=== PATIENT | male | born 1960 | race Caucasian/White ===

== ENCOUNTER 2024-09-13 09:10 | Outpatient (AMB) | payer BC, SELFPAY ==
--- NOTE | 2024-09-13 09:18 | HO.SPINEOV ---
Vital Signs 09/13/24 09:19 Height 6 ft 2 in Weight 240 lb BMI 30.8 Intake Visit Reasons: radiculopathy- Trouble walking Intake Note: Mr. Chaudhry is here today c/o Numbness and Tingling on the leg and foot. 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 The 1st problem, and the 1 that is been the most noticeable to be him has been a numbness and weakness of his left distal lower extremity that started in April. It started rather abruptly, without any specific provocative event. He describes himself as having tingling and numbness in the back part of his calf as well as in the top of his foot. At the same time this started, he developed a footdrop. The numbness and tingling in the foot will get worse with activity, but can also be felt at rest. The footdrop is more less stayed the same since it started without any progression. There is no pain shooting down the leg. No cauda equina symptoms. The 2nd symptom is a left arm numbness which is intermittent but is present fairly frequently. It is brought him to the emergency room twice where he has had a stroke evaluation and both times he tells me an MRI was done and a stroke was ruled out. He is frustrated because he is not sure what to do at this point. He does report some balance issues. He has not fallen, but he has to make a dedicated concentration on his left leg when he is walking to make sure he does not trip on something. Denies any recent fevers, infections, vaccinations, tick bites, etc.. PMH: History of coronary disease with a stent 3 years ago, hypertension, high cholesterol but outside of that reports no major medical issues and has never had surgery. Social hx: He does not smoke, drink or use any recreational drugs Medications: Lisinopril, carvedilol, atorvastatin Allergies: None Physical exam: He is awake alert oriented no acute distress, motor examination reveals subtle weakness of the distal left upper extremities, specifically in the hand grasp in the finger intrinsics. He also has weakness of his distal left lower extremity in the motor groups of the tibialis anterior and the extensor hallucis longus. The rest of the motor groups of both arms and legs are normal. He has hyperreflexia in the left upper extremity and left lower extremity. He has a Torin's sign on the left. Possibly an upgoing toe on the left as well, it was difficult for him to cooperate with Babinski testing. He has loss of sensation along the top of his foot going across in an L5/peroneal distribution. Imaging review: He is a lumbar MRI done at [facility] which is essentially showing just some very modest degenerative disc disease with no evidence of nerve compression Impression: 63-year-old male suffered to the office today for evaluation of numbness and tingling in his left arm intermittently, and persistent tingling and numbness of his left distal lower extremity with footdrop. His symptoms have remained relatively stable over the course of the last few months with the exception of the tingling in the foot which seems to get worse with activity. The symptoms can be present also at rest and are generally there throughout the day. Lumbar pathology was excluded. Based on his exam, I am concerned he may have a myelopathy with a Butler's sign and hyperreflexia on the left. I am going to order cervical MRI to exclude this. He tells me that brain MRIs have been negative it is time he has gone to the emergency room to have a stroke workup so I will not repeat this. Additionally, I will order a left lower extremity EMG to exclude a polyneuropathy or peroneal neuropathy. We can call him with the results of the cervical MRI and the EMG. Thank you for allowing us to care for your patient. The total time spent with this visit with this patient was 45 minutes reviewing history, physical exam, lumbar imaging review, and implementation of treatment plan or further diagnostic testing Westley Blackmon MD,PhD [facility] Orders: Orders MR cervical spine wo con Today R20.0 - Anesthesia of skin, R20.2 - Paresthesia of skin NE electromyogram (EMG) Today R20.0 - Anesthesia of skin Coding Level of Care Code New Pt Level 4 (99367) Diagnoses Numbness and tingling in left arm R20.0; R20.2 Numbness of left foot R20.0
[2024-09-13 09:19] VITALS: BMI 30.8
== END 2024-09-13 09:47 | disposition home or self-care (01) ==
PROVIDERS: Visit Provider Physician Assistant
DX: R20.0 Anesthesia of skin (principal); R20.2 Paresthesia of skin
CPT/HCPCS: 99204

== ENCOUNTER → 2024-09-13 09:10 | Outpatient (BNVA) | payer BC, SELFPAY | PROVIDERS: Visit Provider Physician Assistant ==

== ENCOUNTER 2024-10-06 08:42 | Outpatient (REF) | payer BC, SELFPAY ==
--- NOTE | 2024-10-06 09:00 | EMG_ITS ---
Chief complaint: Around 6 months of left foot numbness. Left footdrop. Denies any back pain or leg pain. Reason for referral: Evaluate for radiculopathy versus peroneal neuropathy Referred by: Westley IBRAHIM Procedure done: Left lower extremity NCS/EMG, with comparison to right Precautions and/or limitations: None The limb temperature was monitored continuously and remained between 32-36 degrees C during the performance of the NCS. Nerve Conduction Studies Anti Sensory Summary Table ?Stim Site NR Onset (ms) Norm Onset (ms) Peak (ms) Norm Peak (ms) O-P Amp (?V) Norm O-P Amp Site1 Site2 Delta-0 (ms) Dist (cm) Lazaro (m/s) Norm Lazaro (m/s) Left Sural Anti Sensory (Lat Mall) Calf ? 3.4 4.0 <4.0 9.3 >5.0 Calf Lat Mall 3.4 14.0 41 Right Sural Anti Sensory (Lat Mall) Calf ? 3.1 3.8 <4.0 12.4 >5.0 Calf Lat Mall 3.1 14.0 45 Motor Summary Table ?Stim Site NR Onset (ms) Norm Onset (ms) O-P Amp (mV) Norm O-P Amp iAmp (mV) Amp (1st) (%) Site1 Site2 Delta-0 (ms) Dist (cm) Lazaro (m/s) Norm Lazaro (m/s) Left Peroneal Motor (Ext Dig Brev) Ankle NR <4.0 >2.5 Ankle Ext Dig Brev 0.0 B Fib NR B Fib Ankle 0.0 >40 Poplt NR Poplt B Fib 0.0 >40 Right Peroneal Motor (Ext Dig Brev) Ankle ? 3.8 <4.0 10.3 >2.5 12.4 100.0 Ankle Ext Dig Brev 3.8 0.0 B Fib ? 13.2 7.8 8.9 75.7 B Fib Ankle 9.4 38.0 40 >40 Poplt ? 14.3 7.6 8.8 73.8 Poplt B Fib 1.1 7.0 64 >40 Left Tibial Motor (Abd Meneses Brev) Ankle ? 4.6 <5 0.6 >2.5 0.6 100.0 Ankle Abd Meneses Brev 4.6 0.0 Knee ? 19.1 0.4 0.4 66.7 Knee Ankle 14.5 47.0 32 >40 EMG ?Side Muscle Nerve Root Ins Act Fibs Psw Amp Dur Poly Recrt Int Pat Comment Right AntTibialis Dp Br Peron L4-5 Nml Nml Nml Nml Nml 0 Nml Complete Right MedGastroc Tibial S1-2 Nml Nml Nml Nml Nml 0 Nml Complete Left AbdHallucis MedPlantar S1-2 Incr 1+ 1+ Nml Nml 0 Nml Complete Left AntTibialis Dp Br Peron L4-5 Incr 1+ 1+ Nml Nml 0 Nml Complete Left PostTibialis Tibial L5, S1 Incr 1+ 1+ Nml Nml 0 Reduced Complete Left MedGastroc Tibial S1-2 Incr 1+ 1+ Nml Nml 0 Reduced Complete Left VastusMed Femoral L2-4 Nml Nml Nml Nml Nml 0 Nml Complete Paraspinal EMG ?Side Muscle Nerve Root Ins Act Fibs Psw Comment Right Lumbar Upper Rami Nml Nml Nml Right Lumbar Mid Rami Nml Nml Nml Right Lumbar Lower Rami Nml Nml Nml Left Lumbar Upper Rami Nml Nml Nml Left Lumbar Mid Rami Nml Nml Nml Left Lumbar Lower Rami Incr 1+ 1+ FINDINGS: Left peroneal nerve showed absent response. Left tibial nerve showed very small/almost absent response. Bilateral sural and right peroneal were within normal. Although left sural showed slightly smaller and slower peak latency compared to the right. Concentric needle EMG was performed in selected muscles of the bilateral lower extremities and lumbar paraspinals. Study revealed signs of electric abnormalities as shown in the table above. L5-S1 innervated muscles such as left tibialis anterior, medial gastrocnemius, posterior tibialis, AH, showed increased insertional activity, PSWs and fibrillations. Left medial gastrocnemius and posterior tibialis showed reduced recruitment. Left lower lumbar paraspinals showed increased insertional activity, PSWs and fibrillations. IMPRESSION: 1. This is an abnormal study. 2. There is electrodiagnostic findings suggestive for left L5-S1 acute/subacute radiculopathy. 3. Left sural showed slightly smaller and slower peak latencies compared to the right, therefore possibility of sciatic neuropathy not completely ruled out. 4. No findings on right lower extremity to suggest peripheral neuropathy. CLINICAL COMMENT: Patient denies back pain and MRI lumbar spine report does not seem consistent with the above findings. (However I did not have the chance to review the MRI images myself.) Further clinical correlation recommended. Thank you for your kind referral. Irene Oliver MD, DAVION Board Certified, [place] [employer] and [employer] (ABPMR) Board Certified, [place] [employer] Electro[employer] (ABEM) CODIN [id number] MTDD
--- OUTSIDE RECORDS SUMMARY | 2024-10-06 23:08 | XMS_ITS | Continuity of Care Document ---
Author Organization [facility] ter Address [address] [place] [id number]- Care Team Providers Care Fall Intern Name Role Phone Verónica LAMBERT, Melanie Primary Care Physician Encounter [facility] Date(s): 09/05/24 - 09/06/[address] [address]- Discharge Disposition: A-D/C Home Attending Physician: Miranda Engle MD Admitting Physician: Rola Azul MD Referring Physician: Not on Staff, Referring MD Allergies, Adverse Reactions, Alerts No Known Allergies Immunizations Given and Recorded Vaccine Date Status Refusal Reason tetanus-diphtheria toxoids (Td) 03/29/24 Given influenza virus vaccine, inactivated 08/18/23 John rded SARS-CoV-2(COVID-19)mRNA-LNP vac([id number]) 08/18/23 Recorded SARS-CoV-2 mRNA ([id number]-[id number]) vax 02/07/22 Recorded SARS-CoV-2 (COVID-19) mRNA BNT-162b2 vac 09/17/21 Recorded SARS-CoV-2 (COVID-19) mRNA BNT-162b2 vac 03/08/21 Recorded SARS-CoV-2 (COVID-19) mRNA-1273 vaccine 02/08/21 R ecorded Medications amLODIPine 10 mg oral tablet 10 mg, Tablet, By Mouth, Hold for: sbp<110, 09/06/24 9:00:00 EST Start Date: 09/06/24 Stop Date: 09/06/24 Status: Completed amLODIPine 10 mg oral tablet 1 tablet, By Mouth, Daily in AM, # 90 tablet, 1 Refills, Maintenance, 03/29/24 14:01:00 EDT, [id number], 188, cm, 03/29/24 13:54:00 EDT, Height, 107, kg, 11/03/23 1:48:00 EST, Dry Weight Start Date: 03/29/24 Status: Ordered aspirin 81 mg oral delayed release tablet 81 mg, 1, tablet, By Mouth, Daily, Refills 0, Maintenance, 01/06/23 9:12:00 EDT, Partial fill upon patient request if the prescription is for a schedule II opioid drug. Start Date: 01/06/23 Status: Ordered atorvastatin 80 mg oral tablet 1 tablet, By Mouth, Daily, # 90 tablet, 1 Refills, Maintenance, 05/03/24 9:44:00 EDT, [id number], 188, cm, 03/29/24 13:54:00 EDT, Height, 107, kg, 11/03/23 1:48:00 EST, Dry Weight Start Date: 05/03/24 Status: Ordered carvedilol 25 mg oral tablet 25 mg, Tablet, By Mouth, Hold for: sbp<100, hr<60, 09/06/24 9:00:00 EST Start Date: 09/06/24 Stop Date: 09/06/24 Status: Completed carvedilol 25 mg oral tablet 25 mg, By Mouth, 2 times a day, Refills 0, Maintenance, 07/30/24 12:19:00 EDT, Partial fill upon patient request if the prescription is for a schedule II opioid drug. Start Date: 07/30/24 Status: Ordered ezetimibe 10 mg oral tablet TAKE 1 TABLET BY MOUTH EVERY DAY Start Date: 12/14/21 Status: Ordered isosorbide mononitrate 30 mg oral tablet, extended release 1 tablet = 30 mg, By Mouth, Daily in AM, 0 Refills, Maintenance, 07/30/24 3:23:00 EDT, Partial fillupon patient request if the prescription is for a schedule II opioid drug. Start Date: 07/30/24 Status: Ordered nitroglycerin 0.4 mg sublingual tablet 1 tablet = 0.4 mg, Sublingual, Every 5 minutes, PRN as needed for chest pain, not to exceed 3 doses/15 min--if pain persists, seek medical attention, # 25 tablet, 0 Refills, Maintenance, 02/14/21 15:42:00 EDT, Tablet, [id number], Partial fill... Start Date: 02/14/21 Status: Ordered Problem List Condition Confirmation Course Effective Dates Status H ealth Status Informant CAD (coronary artery disease) Confirmed Active Gout Confirmed Active Hypertensive disorder Confirmed Active Obese class I Confirmed Active Obesity Confirmed Active Prediabetes Confirmed Active Hyperlipidemia Confirmed Active Transient cerebral ischemia 1 Confirmed 10/21/23 Active 1Outside Source Comment: Last Assessment & Plan: TIA/disorientation -NIH stroke scale 0, CT of the head and neck revealed no acute intracranial findings however did find some vessel disease. 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 Plan: MRI of the brain ordered and pending Lipid panel, A1c, PT/INR, troponin, TSH, ESR, CRP pending If MRI positive may require TTE on admission, or can be performed as an outpatient Permissive hypertension with goal BP less than 220 mmHg, can resume homemedications for hypertension to ensure BP is less than 160 upon discharge Aspirin and Plavix administered in the ER, continue DAPT therapy for approximately 21 day s then Plavix monotherapy Continue high intensity statin 80 mg daily Smoking cessation. Outpatient follow up with neurology. Results Radiology Reports * Exam Date Time Procedure Performing Provider Status 09/06/24 6:34 AM Chest 2 Views Frontal and Lat Becky Lantigua; Auth (Verified) Notes: (Chest 2 Views Frontal and Lat) Reason For Exam: Stroke;Other: RESULT: Chest 2 Views Frontal and Lat Chest 2 Views Frontal and Lat Reason: Stroke; Clinical Question(s): CHF. COMPARISON: Multiple priors, most recent chest radiograph 07/30/2024. FINDINGS: LINES AND TUBES: None. LUNGS AND PLEURA: Clear lungs. Normal pulmonary vascularity. No pleural effusion. No pneumothorax. HEART, MEDIASTINUM AND JENNIFER: Heart is normal in size. Normal mediastinal and hilar contour. BONES AND SOFT TISSUES: No acute abnormality. Mild degenerative changes of the midthoracic spine. IMPRESSION: No acute abnormality. I have personally reviewed the images and I agree with this report. WSN: [id number] Ordering Physician: Bobby Yates Dictated By: Kecia Gotti DO Dictated Date/Time: 09/06/24 9:18 am Reviewed By: Jose Valles MD, V Signed By: Jose Valles MD, V Signed Date/Time: 09/06/24 9:23 am Transcribed By: MONTSERRAT Transcribed Date/Time: 09/06/24 9:07 am * Exam Date Time Procedure Performing Provider Status 09/05/24 8:[address] Angio Neck Hyperacute Stroke Rainer Garcia (Verified) Notes: (CT Angio Neck Hyperacute Stroke) Reason For Exam: Aneurysm, neck vessel(s);Other: RESULT: CT Angio Neck Hyperacute Stroke CT Angio Head Hyperacute Stroke, CT Angio Neck Hyperacute Stroke Hx of Present Illness: Pt reports new onset of numbness of L arm and R leg with palpatations, 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 Pt denies headaches, n v, weakness, loss of balance and coordination.; Reason: Other:; Stroke; Clinical Question(s): Other:; Hematoma Aneurysm / Other: TECHNIQUE: CT angiogram of the head and neck was performed after bolus administration of intravenous contrast. 100 mL of Isovue 300 was administered intravenously. Coronal and sagittal MIP reformatted images were obtained. Additional 3-D images were created on a separate workstation under concurrent supervision by the attending radiologist. All stenoses are measured using NASCET criteria. Weight-based protocol using automatic tube modulation was used to optimize exposure parameters. RADIATION DOSE PARAMETERS: CTDIvol Body: 28.47 mGy, DLP Body: 634 mGy*cm. CTDIvol Head: 46.30 mGy, DLP Head: 773 mGy*cm. COMPARISON: Noncontrast CT head performed concurrently. CTA of the head and neck 07/29/2024 FINDINGS: CTA OF THE NECK: Arch: There is a two vessel aortic arch, with common origin of the brachiocephalic artery and left common carotid artery. There is mild atherosclerotic plaque of the aortic arch, but origins of the supra aortic vessels are patent. Mild soft plaque and mild narrowing of the proximal left subclavian artery. Right carotid system: The common carotid and cervical internal carotid arteries are patent. There is calcified atherosclerotic plaque at the carotid bifurcation and proximal right ICA, but no ICA stenosis (0%) by NASCET criteria. Left carotid system: The common carotid and cervical internal carotid arteries are patent. There iscalcified atherosclerotic plaque at the carotid bifurcation, but no ICA stenosis (0%) by NASCET criteria. There is a left-dominant vertebral artery system. Right vertebral: Patent. Left vertebral: Patent. Scattered calcifications including the origin. Other: Soft tissues and bones: No evidence of lymphadenopathy or mass. The thyroid is unremarkable. Visualized lung apices are clear. Degenerative changes of the cervical spine. CTA OF THE HEAD: Anterior circulation: Bilateral intracranial ICAs demonstrate atherosclerotic calcification, without stenosis. Bilateral JB and MCA branches are patent. There is no significant stenosis, proximal cutoff, aneurysm, or vascular malformation. Posterior circulation: Severe focal stenosis of the proximal V4 segment of the right vertebral artery is more pronounced. The left humeral artery is patent. The basilar artery is patent. There is a type left posterior cerebral artery, which is patent. The right posterior cerebral artery is patent. Veins: Major dural venous sinuses are patent. Other: Soft tissues and bones: No midline shift or effacement of the basal cisterns. No space-occupying hemorrhage. No acute territorial loss of taylor-white matter differentiation. Orbits are unremarkable. No significant opacification in the paranasal sinuses or mastoid air cells. IMPRESSION: 1. No acute intracranial large vessel occlusion. 2. Severe focal stenosis of the nondominant proximal V4 segment of the right vertebral artery is more pronounced. 3. No hemodynamically-significant stenoses of the extracranial internal carotid and vertebral arteries. Mild soft plaque and mild narrowing of the proximal left subclavian artery. A preliminary report was issued to the emergency room by the [facility] service 09/05/2024 at 9:04 PM. WSN: [id number] Ordering Physician: Bobby Ytaes Dictated By: Jose L Estrada MD Dictated Date/Time: 09/06/24 8:43 am Reviewed By: Jose L Estrada MD Signed By: Jose L Estrada MD Signed Date/Time: 09/06/24 8:43 am Transcribed By: CSB Transcribed Date/Time: 09/06/24 8:33 am * Exam Date Time Procedure Performing Provider Status 09/05/24 8:[address] Angio Head Hyperacute Stroke Rainer Garcia; Navi (Verified) Notes: (CT Angio Head Hyperacute Stroke) Reason For Exam: Stroke;Other: RESULT: CT Angio Head Hyperacute Stroke CT Angio Head Hyperacute Stroke, CT Angio Neck Hyperacute Stroke Hx of Present Illness: Pt reports new onset of numbness of L arm and R leg with palpatations, 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 Pt denies headaches, n v, weakness, loss of balance and coordination.; Reason: Other:; Stroke; Clinical Question(s): Other:; Hematoma Aneurysm / Other: TECHNIQUE: CT angiogram of the head and neck was performed after bolus administration of intravenous contrast. 100 mL of Isovue 300 was administered intravenously. Coronal and sagittal MIP reformatted images were obtained. Additional 3-D images were created on a separate workstation under concurrent supervision by the attending radiologist. All stenoses are measured using NASCET criteria. Weight-based protocol using automatic tube modulation was used to optimize exposure parameters. RADIATION DOSE PARAMETERS: CTDIvol Body: 28.47 mGy, DLP Body: 634 mGy*cm. CTDIvol Head: 46.30 mGy, DLP Head: 773 mGy*cm. COMPARISON: Noncontrast CT head performed concurrently. CTA of the head and neck 07/29/2024 FINDINGS: CTA OF THE NECK: Arch: There is a two vessel aortic arch, with common origin of the brachiocephalic artery and left common carotid artery. There is mild atherosclerotic plaque of the aortic arch, but origins of the supra aortic vessels are patent. Mild soft plaque and mild narrowing of the proximal left subclavian artery. Right carotid system: The common carotid and cervical internal carotid arteries are patent. There is calcified atherosclerotic plaque at the carotid bifurcation and proximal right ICA, but no ICA stenosis (0%) by NASCET criteria. Left carotid system: The common carotid and cervical internal carotid arteries are patent. There iscalcified atherosclerotic plaque at the carotid bifurcation, but no ICA stenosis (0%) by NASCET criteria. There is a left-dominant vertebral artery system. Right vertebral: Patent. Left vertebral: Patent. Scattered calcifications including the origin. Other: Soft tissues and bones: No evidence of lymphadenopathy or mass. The thyroid is unremarkable. Visualized lung apices are clear. Degenerative changes of the cervical spine. CTA OF THE HEAD: Anterior circulation: Bilateral intracranial ICAs demonstrate atherosclerotic calcification, without stenosis. Bilateral JB and MCA branches are patent. There is no significant stenosis, proximal cutoff, aneurysm, or vascular malformation. Posterior circulation: Severe focal stenosis of the proximal V4 segment of the right vertebral artery is more pronounced. The left humeral artery is patent. The basilar artery is patent. There is a type left posterior cerebral artery, which is patent. The right posterior cerebral artery is patent. Veins: Major dural venous sinuses are patent. Other: Soft tissues and bones: No midline shift or effacement of the basal cisterns. No space-occupying hemorrhage. No acute territorial loss of taylor-white matter differentiation. Orbits are unremarkable. No significant opacification in the paranasal sinuses or mastoid air cells. IMPRESSION: 1. No acute intracranial large vessel occlusion. 2. Severe focal stenosis of the nondominant proximal V4 segment of the right vertebral artery is more pronounced. 3. No hemodynamically-significant stenoses of the extracranial internal carotid and vertebral arteries. Mild soft plaque and mild narrowing of the proximal left subclavian artery. A preliminary report was issued to the emergency room by the [facility] service 09/05/2024 at 9:04 PM. WSN: [id number] Ordering Physician: Bobby Yates Dictated By: Jose L Estrada MD Dictated Date/Time: 09/06/24 8:43 am Reviewed By: Jose L Estrada MD Signed By: Jose L Estrada MD Signed Date/Time: 09/06/24 8:43 am Transcribed By: MONTSERRAT Transcribed Date/Time: 09/06/24 8:33 am * Exam Date Time Procedure Performing Provider Status 09/06/24 5:12 AM MRI Brain W/O Contrast Aurelio Barlow; Navi (Verified) Notes: (MRI Brain W/O Contrast) Reason For Exam: stroke;Hemiparesis RESULT: MRI Brain W/O Contrast MRI Brain W/O Contrast INDICATION / CLINICAL QUESTION: Reason: Hemiparesis; stroke; Clinical Question(s): Infarction; lefthand numbness; Order Comment: Please see Reference Text for complete list of contraindications Infarction TECHNIQUE: MRI of the brain was performed without contrast utilizing sagittal T1, axial T2, axial FLAIR, axial SWAN, and axial DWI sequences. COMPARISON: MRI of the brain 07/30/2024. FINDINGS: BRAIN and EXTRA-AXIAL SPACES: The flow voids through the [place] of [place] are maintained, and thereis no restricted diffusion or abnormal susceptibility artifact. A small FLAIR bright focus within the right frontal white matter is unchanged. The ventricles are normal in size. This no mass effect or extra-axial fluid collection. The cervicomedullary junction is normal. EXTRACRANIAL SOFT TISSUES: The visualized extracranial soft tissues and orbital structures are unremarkable. BONES: Marrow signal is unremarkable. IMPRESSION: 1. No acute infarct. 2. A small FLAIR bright focus within the right frontal white matter is unchanged. This is nonspecific, but compatible with chronic microangiopathic/small vessel ischemic change. WSN: [id number] Ordering Physician: Mike Tillman Dictated By: Jose L Estrada MD Dictated Date/Time: 09/06/24 7:40 am Reviewed By: Jose L Estrada MD Signed By: Jose L Estrada MD Signed Date/Time: 09/06/24 7:40 am Transcribed By: MONTSERRAT Transcribed Date/Time: 09/06/24 7:34 am * Exam Date Time Procedure Performing Provider Status 09/05/24 8:[address] Head-Hyper Acute Stroke Rainer Zendejas; Navi (Verified) Notes: (CT Head-Hyper Acute Stroke) Reason For Exam: Neuro deficit, acute, stroke suspected;Other: RESULT: CT Head-Hyper Acute Stroke CT Head-Hyper Acute Stroke INDICATION: Hx of Present Illness: Pt reports new onset of numbness of L arm and R leg with palpatations, 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 Pt denies headaches, n v, weakness, loss of balance and coordination.; Reason: Other:; Neuro deficit, acute, stroke suspected; Clinical Question(s): Other:; Hematoma Infarction TECHNIQUE: Noncontrast head CT using axial technique and reconstructed in axial and coronal planes.Iterative reconstruction techniques are used to optimize dose and image quality. COMPARISON: 07/29/2024 FINDINGS: Taylor white matter differentiation is preserved. No evidence of intracranial hemorrhage. No intra or extra-axial mass. IMPRESSION: No acute intracranial pathology. WSN: [id number] Ordering Physician: Bobby Yates Dictated By: Westley Lehman MD Dictated Date/Time: 09/05/24 9:05 pm Reviewed By: Westley Lehman MD Signed By: Westley Lehman MD Signed Date/Time: 09/05/24 9:05 pm Transcribed By: MONTSERRAT Transcribed Date/Time: 09/05/24 9:02 pm Vital Signs Most recent to oldest [Reference Range]: 1 2 3 Height 188 cm (09/06/24 10:47 AM) 188 cm (09/06/24:48 AM) 188 cm (09/06/24 4:17 AM) Weight 111.1 kg (09/05/24 11:36 PM) 111.1 kg (09/05/24 11:30 PM) Oxygen Saturation [94-100 %] 99 % (09/06/24 10:47 AM) 100 % (09/06/24:48 AM) 100 % (09/06/24 4:17 AM) Pulse Rate [55-90 bpm] 56 bpm (09/06/24 10:47 AM) 47 bpm *L* (09/06/24 9:46 AM) 47 bpm *L* (09/06/24 6:48 AM) Body Mass Index [18.5-24.99 kg/m2] 31.43 kg/m2 *>HHI* (09/05/24 11:36 PM) Blood Pressure [90-138/55-84 mm Hg] 126/75mm Hg (09/06/24 10:47 AM) 174/83mm Hg *H* (09/06/24 9:46 AM) 174/83mm Hg *H* (09/06/24 9:46 AM) Respiratory Rate [16-30 br/min] 20 br/min (09/06/24 10:47 AM) 20 br/min (09/06/24 6:48 AM) 21 br/min (09/06/24 4:17 AM) Temperature [96.8-100.4 DegF] 98.3 DegF (09/06/24 10:47 AM) 98.0 DegF (09/06/24 6:48 AM) 97.5 DegF (09/06/24 4:17 AM) Mode of Delivery (Oxygen) Room air (09/06/24 10:47 AM) Room air (09/06/24 6:48 AM) Room air (09/06/24 4:17 AM) Blood pressure sites Arm, left (09/06/24 10:47 AM) Arm, left (09/06/24 6:48 AM) Arm, left (09/06/24 4:17 AM) Temperature Route Oral (09/06/24 10:47 AM) Oral (09/06/24 6:48 AM) Oral (09/06/24 4:17 AM) Dry Weight 111.1 kg (09/05/24 11:36 PM) Weight Obtained Via Standing scale (09/05/24 11:36 PM) Standing scale (09/05/24 11:30 PM) Social History Social History Type Response Smoking Status Former smoker, quit more than 30 days ago; Other: Last cigarette was early 2020. Hx 1/2 pack per month for 20 years.; entered on: 12/14/21 Sex History and physical note * Jorge Alberto LAMBERT, Rola Ballesteros: PERFORM, MODIFY, MODIFY, MODIFY, MODIFY Event Display: History and Physical Hospital Authored Date: Patient: ??JOSESITO ROE ? Age:??63 Years?Sex:??Male?:??[id number]?? Chief Complaint/Reason for Consultation coming from home for c/o numbness to L arm and feet, started around 1830. Pt also reports heartburnand plapation. 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 History of Present Illness 09/06 ?? 63-year-old male with PMH including HTN, HLD, CAD (NSTEMI s/p SALLIE on mid LAD in 2020), prediabetes,TIA, gout, chronic left foot drop, obesity.?? Patient presented to ER with??complaints of numbness involving left upper extremity and right lower extremity. ?? Patient was recently admitted 07/29 after he presented with subjective numbness and heaviness on theleft lower extremity for 2 months and new left upper extremity numbness.?? At the time CT scan of the head, CT angio head and neck, MRI of the brain and MRI cervical spine did not show anything acute.?? There was multilevel neural foraminal narrowing most severe bilaterally at C5-6 and on the left at C4-5.?? At that time patient was seen by neurology.?? No clear cause identified, recommended MRI of the lumbar spine along with TSH, B1, B6, folate, B12 level.?? Subsequently had MRI lumbar spine done 08/27 showing degenerative changes of the lumbar spine without significant central canal/foraminal narrowing or nerve root impingement.?? Mild edema of the L4 pedicles and right L5 pedicle is nonspecific but may represent stress reaction related to altered mechanism and facet arthrosis. ?? The patient now comes in with??numbness involving??left upper extremity and right??foot. 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 He also has a chronic left dropfoot. ??However about a month ago??he had??numbness on the left upper extremity that stayed??for 1??day and then resolved, had the workup done??in hospital.?? Then earlier today??he again developed??numbness involving the whole of the left upper extremity and the right foot.?? No weakness.?? Denies any??headache, blurring of vision, double vision, auditory symptoms,??difficulty swallowing,??facial asymmetry, change in voice.?? No bowel or bladder involvement.?? No fever, chill, cough, chest pain, shortness of breath, abdomen pain, nausea, vomiting, diarrhea, urinary symptoms. ?? In ER patient was hemodynamically stable although often bradycardic.?? Labs mostly unremarkable, mild anemia noted.?? Troponin 29 and 29.?? EKG shows sinus rhythm with heart rate of 54, QTc 394, inferior Q-wave.?? CT scan of the head does not show thing acute.?? CT angio head V rad report shows severe short segment stenosis without occlusion in the intracranial segment of the right vertebral artery.?? CT angio neck V rad report shows limited atherosclerosis without dissection, aneurysm or significant stenosis in the extracranial carotid systems or vertebral arteries. ?? Patient was seen by neurology.?? Please see their note for recommendation.?? Placed on observation for further evaluation.?? Patient during my assessment says that the numbness involving the left upper extremity has improved considerably. Review of Systems All systems reviewed and negative except as in HPI. Objective Measurements?? Height: 188 cm (09/05/24) Weight: 111.1 kg (09/05/24) Dry Weight: 111.1 kg (09/05/24) Body Mass Index:??31.43 kg/m2??Critical (09/05/24) ? Vital Signs?? Temperature: 98 DegF (09/05/24 23:36:00) Temperature Route: Oral (09/05/24 23:36:00) Pulse Rate:??50 bpm??Low (09/05/24 23:36:00) Respiratory Rate: 18 br/min (09/05/24 23:36:00) Systolic Blood Pressure: 138 mm Hg (09/05/24 23:36:00) Diastolic Blood Pressure:??86 mm Hg??High (09/05/24 23:36:00) Blood pressure sites: Arm, left (09/05/24 23:36:00) Mean Arterial Pressure: 103 mm Hg (09/05/24 23:36:00) Pulse Pressure: 52 mm Hg (09/05/24 23:36:00) Oxygen Saturation: 100 % (09/05/24 23:36:00) Mode of Delivery (Oxygen): Room air (09/05/24 23:36:00) Early Warning Score: 1 (09/05/24 23:41:57) ? Physical Exam Constitutional: ??Alert,??no acute distress, co-operative, lying on the bed, saturating well on room air. ?? Mental state: Oriented x 3. Head: ??Normocephalic, atraumatic. ?? Eye:?No discharge. ENT: No discharge. Neck: ??Supple,??no JVD. Cardiovascular: ??S1, S2. Regular rhythm. No MRG. Respiratory: ??Lungs are clear to auscultation b/l, No RRR. ?? Gastrointestinal: ??Soft, Nontender, Non distended, ??Normal bowel sounds.?? Genitourinary: No costovertebral angle tenderness. Neurological: ??Cranial nerves intact. Motor intact. Chronic drop foot on left side. Subjective numbness on LUE and RLE, improving as per patient. Back: ??Nontender. Musculoskeletal: ??Normal ROM.?? No edema Hematology: No lymphadenopathy Skin: ??Warm, dry. Psychiatric: ??Cooperative.?? Assessment/Plan Diagnoses Anemia ??(D64.9) Bradycardia ??(R00.1) CAD (coronary artery disease) ??(I25.10) CVA (cerebral vascular accident) ??(I63.9) HLD (hyperlipidemia) ??(E78.5) HTN (hypertension) ??(I10) Numbness, limb ??(R20.0) Prediabetes ??(R73.03) ?? Assessment:??63-year-old male with PMH including HTN, HLD, CAD (NSTEMI s/p SALLIE on mid LAD in 2020),prediabetes, TIA, gout, chronic left foot drop, obesity.??Patient presented to ER with??complaints of numbness involving left upper extremity and right lower extremity. ?? CVA (cerebral vascular accident) (I63.9) Numbness, limb (R20.0) ? Presented with numbness of the left upper extremity and right foot.??Seen by neurology.??On observation for CVA rule out. ?? Telemetry Neurocheck Stat CT scan of the head for any change in neurostatus. Patient has passed swallow evaluation as per RN. Aspirin 81 mg daily. Continue statin.?Zetia nonformulary.??Goal LDL??less than 70. Control blood pressure.??Goal SBP below 180 and long-term??6 weeks BP goal is less than 130/80. Patient has had recent??A1c and??lipid panel done??last month. MRI of the brain. Of note CT neurogram [facility] report shows??right vertebral artery short segment stenosis, please follow-up the official read. Neurology following. ?Antithrombotic Therapy by End of Hospital Day 2:??Antithrombotic ordered ?Statin Ordered:??Statin Ordered ?? HTN (hypertension) (I10):??Continue??amlodipine and??Coreg.??Goal blood pressure as above. ?? HLD (hyperlipidemia) (E78.5):??Continue??statin.??Goal LDL as above. ?? Prediabetes (R73.03):??Optimize glucose control. ?? CAD (coronary artery disease) (I25.10):??Continue aspirin, statin, Imdur,??Coreg. ?? Bradycardia (R00.1):??Noted to have bradycardia. TSH done during last month was normal.??Monitor heart rate.??May need to reduce beta-praful if persistent bradycardia. ?? Anemia (D64.9):??At baseline, monitor. ?? VTE Prophylaxis:??As per guideline ?VTE Prophylaxis Assessment:??Risk Level documented as Low Risk ?? Discharge Planning:? Code Status:??Full code ?Order Code Status:??Code Status Ordered ? Estimated Discharge Date ? Histories Allergies Allergies ?(Active and Proposed Allergies Only) NKA? (Severity: Unknown severity, Onset: Unknown) ? Past Medical History/Problem List Active Problems(8) CAD (coronary artery disease) Gout Hyperlipidemia Hypertensive disorder Obese class I Obesity Prediabetes Transient cerebral ischemia ? Past Surgical History Tonsillectomy, primary or secondary; younger than age 12 Insertion of coronary artery stent ? Social History Alcohol Details:??Use: Past. ??Frequency: 1-2 times per month. ??Other: quit 12/2022. Employment/School Details:??Status: Employed. 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 Exercise Details:??Self assessment: Good condition. ??Regular exercise: No. Home/Environment Details:??Living situation: Home/Independent. ??Lives with: Alone. Nutrition/Health Details:??Diet: Regular. Substance Abuse Details:??Use: Past. ??Type: Marijuana. ??Other: quit in 1981. Tobacco Details:??Use: Former smoker, quit more than 30 days ago. ??Other: Last cigarette was early 2020. ??Hx 1/2 pack per month for 20 years.. Electronic Cigarette/Vaping Details:??Electronic Cigarette Use: Never. ? Family History Mother: Aortic valve disorder Father: Diabetes mellitus ? Medications Home Medications Amlodipine (amLODIPine 10 mg oral tablet)?Daily in AM?1?tab(s)?By Mouth Aspirin (aspirin 81 mg oral delayed release tablet)?tablet?81?Milligram?1?By Mouth?Daily Atorvastatin (atorvastatin 80 mg oral tablet)?Daily?1?tab(s)?By Mouth Carvedilol (carvedilol 25 mg oral tablet)?2 times a day?25?Milligram?By Mouth Ezetimibe (ezetimibe 10 mg oral tablet)?TAKE 1 TABLET BY MOUTH EVERY DAY Isosorbide Mononitrate (isosorbide mononitrate 30 mg oral tablet, extended release)?Milligram?1?tab(s)?30?By Mouth?Daily in AM Nitroglycerin (nitroglycerin 0.4 mg sublingual tablet)?1?tab(s)?0.4?Milligram?Sublingual?Every 5 minutes?as needed?as needed for chest pain?not to exceed 3 doses/15 min--ifpain persists, seek medical attention ? Inpatient Medications Medications (14) Active SCHEDULED: (7) Amlodipine 10 mg Tablet (amLODIPine 10 mg oral tablet) ??10 mg, By Mouth, Daily in AM Aspirin 81 mg EC Tablet (aspirin 81 mg oral delayed release tablet) ??81 mg, By Mouth, Daily Atorvastatin 80 mg Tablet (atorvastatin 80 mg oral tablet) ??80 mg, By Mouth, Daily Carvedilol 25 mg Tablet (carvedilol 25 mg oral tablet) ??25 mg, By Mouth, 2 times a day Fluzone Trivalent (6mo ??? 64yr) Inj 0.5mL (Influenza, Trivalent Vaccine) ??0.5 mL, Intramuscular, Once Isosorbide Mononitrate 30 mg ER Tablet (isosorbide mononitrate 30 mg oral tablet, extended release)??30 mg, By Mouth, Daily in AM NaCl 0.9% Flush 3ml (NaCL 0.9% Flush) ??3 mL, IV Push, Every 8 hours CONTINUOUS: (0) PRN: (7) Acetaminophen 325 mg Tablet (Acetaminophen Tablet) ??650 mg, By Mouth, Every 4 hours Docusate Sodium 100 mg Capsule (Docusate Sodium Capsule) ??100 mg 1 capsule, By Mouth, 2 times a day Melatonin 3 mg Tablet (Melatonin Tablet) ??3 mg, By Mouth, Daily at bedtime NaCl 0.9% Flush 3ml (NaCL 0.9% Flush) ??3 mL, IV Push, Every 8 hours Polyethylene Glycol 17 Gm Powder (MiraLax Powder) ??17 Gm 1 pack/packet, By Mouth, Daily Senna Tablet ??8.6 mg 1 tablet, By Mouth, 2 times a day Simethicone 80 mg Chewable Tablet (Simethicone Tablet) ??80 mg, Chew, 3 times a day ? Results Recent Labs BLOOD BANK Blood Type A Positive ()?? 09/05/2024 20:31 Antibody Screen Negative ()?? 09/05/2024 20:31 ?? BLOOD COUNT & DIFF WBC 5.5 k/mm3 ()?? 09/05/2024 20:47 RBC 4.28 m/mm3 (Low)?? 09/05/2024 20:47 Hgb 13.4 Gm/dL (Low)?? 09/05/2024 20:47 Hct 40.0 % (Low)?? 09/05/2024 20:47 MCV 93.5 femtoliters ()?? 09/05/2024 20:47 MCH 31.3 pg ()?? 09/05/2024 20:47 MCHC 33.5 Gm/dL ()?? 09/05/2024 20:47 Platelet Count 260 k/mm3 ()?? 09/05/2024 20:47 RDW-SD 41.8 femtoliters ()?? 09/05/2024 20:47 MPV 9.4 femtoliters ()?? 09/05/2024 20:47 Nucleated RBC (Automated) 0.0 #/100 WBC'S ()?? 09/05/2024 20:47 Abs. NRBC 0.0 k/mm3 ()?? 09/05/2024 20:47 Abs. Neut 2.9 k/mm3 ()?? 09/05/2024 20:47 Abs. Lymph 1.6 k/mm3 ()?? 09/05/2024 20:47 Abs. [place] 0.7 k/mm3 ()?? 09/05/2024 20:47 Abs. Eo 0.2 k/mm3 ()?? 09/05/2024 20:47 Abs. Baso 0.0 k/mm3 ()?? 09/05/2024 20:47 Neut % 53.9 % ()?? 09/05/2024 20:47 Lymph % 28.8 % ()?? 09/05/2024 20:47 [place] % 11.9 % (High)?? 09/05/2024 20:47 Eos % 4.0 % ()?? 09/05/2024 20:47 Baso % 0.7 % ()?? 09/05/2024 20:47 Imm Gran 0.7 % ()?? 09/05/2024 20:47 Abs. Imm Gran 0.0 k/mm3 ()?? 09/05/2024 20:47 ?? CARDIAC High Sensitivity Troponin (HSTnT) 29 ng/L (High)?? 09/05/2024 22:27 ?? CHEM GENERAL Sodium 137 mmol/L ()?? 09/05/2024 20:47 Potassium 4.3 mmol/L ()?? 09/05/2024 20:47 Chloride 102 mmol/L ()?? 09/05/2024 20:47 Bicarbonate Level 23 mmol/L ()?? 09/05/2024 20:47 Anion Gap 12 ()?? 09/05/2024 20:47 Glucose Level 98 mg/dL ()?? 09/05/2024 20:47 Glucose, POC 90 mg/dL ()?? 09/05/2024 21:03 BUN 18 mg/dL ()?? 09/05/2024 20:47 Creatinine-Blood 0.99 mg/dL ()?? 09/05/2024 20:47 Estimated GFR Creatinine 87 ML/MIN/1.73 M2 ()?? 09/05/2024 20:47 Calcium 9.2 mg/dL ()?? 09/05/2024 20:47 AST (SGOT) 33 units/L ()?? 09/05/2024 20:47 ?? COAG INR 1.0 ()?? 09/05/2024 20:47 Protime (PT) 10.9 seconds ()?? 09/05/2024 20:47 APTT 23.6 seconds ()?? 09/05/2024 20:47 ?? MISC. CHEMISTRY Hold Gel Top SPECIMEN DISCARDED AFTER 1 WEEK ()?? 09/05/2024 20:47 ?? URINE OTHER Est Creatinine Clearance 91.14 mL/min ()?? 09/05/2024 23:41 ? EKG study * Event Display: ECG 12-Lead Authored Date: Please click on pdf link to open report * Event Display: ECG 12-Lead Authored Date: Ventricular Rate: 54 BPM Atrial Rate: 54 BPM P-R Interval: 190 ms QRS Duration: 84 ms Q-T Interval: 416 ms QTC Calculation(Bazett): 394 ms P [place]: 21 degrees R [place]: 10 degrees T [place]: 18 degrees Sinus bradycardia Possible Inferior infarct , age undetermined Abnormal ECG When compared with ECG of 29-JUL-2024 18:33, Premature supraventricular complexes are no longer Present Minimal criteria for Anterior infarct are no longer Present Confirmed by KATHERINE PENDLETON ([id number]) on 09/06/2024 8:01:46 AM [place]: KATHERINE PENDLETON Cardiology * Event Display: Cardiac Rhythm Strips Authored Date: Hospital Progress note * José Antonio Juarez: MODIFY, PERFORM Event Display: Progress Note Hospital Authored Date: Patient: ??JOSESITO ROE ? Age:??63 Years?Sex:??Male?:??1960?? Chief Complaint coming from home for c/o numbness to L arm and feet, started around 1830. Pt also reports heartburnand plapation. 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 History of Present Illness Interval hx: - MRI negative for acute stroke Review of Systems - improvement of symptoms however remains with subtle LUE and RLE tingling/numbness sensation. no further complaints of pain or discomfort Physical Exam ?? Neuro Exam ?? Mental Status: ?alert and oriented to person, place, month, and year ?fluent and appropriate speech, no dysarthria ?able to identify simple objects ?able to follow simple and 2 step commands Cranial nerves:?PERRL ?EOMI ?VFF ?equal light touch sensation ?no facial asymmetry or droop no ptosis noted bilaterally hearing intact to voice palate movement symmetric, uvula midline no tongue deviation [id number] head movement and shoulder shrug 5/5 bilaterally muscle strength: ?appropriate muscle tone and bulk ?no tremors ?5/5 UE ?5/5 LE Sensation ?subjective sensory changes LUE and RLE, improved however still subtle symptoms remain Cerebellum ?Finger to nose intact bilaterally?Gait not assessed ?? Assessment/Plan Josesito is a 63 year old male with a significant past medical hx of CAD (NSTEMI s/p SALLIE on mid LAD [id number]), hypertension, hyperlipidemia who presented to ED with left upper arm (entire arm) and right lower extremity foot numbness in the setting of chronic left foot drop and a recent 1mo ago w.u for C4-5 disc dz but no L spine or brain lesions of concern. Today his s/s were assoc with palpitations flushing as he was back visit this brother and felt this s/s. Since admission, symptoms have improved however remains w/ subtle LUE and RLE sensory deficits. MRI brain negative for acute stroke. ?? DDX: LUE and RLE sensory changes MRI negative for acute stroke. Atypical sensory distribution, MRI C spine negative for cord signal abnormality ?? Recommendations: - should obtain Lyme, SPEP and immunofixation electrophoresis (ALIZA) - follow up labs w/ PCP ?? Neurology will sign off Discussed w/ Dr. Santos and Dr. Farley and Dr. Engle ?? Problem List/Past Medical History Ongoing CAD (coronary artery disease) Gout Hyperlipidemia Hypertensive disorder Obese class I Obesity Prediabetes Transient cerebral ischemia Procedure/Surgical History Tonsillectomy, primary or secondary; younger than age 12 Insertion of coronary artery stent Home Medications Amlodipine: 1 tablet, By Mouth, Daily in AM Aspirin: 81 mg = 1 tablet, By Mouth, Daily Atorvastatin: 1 tablet, By Mouth, Daily Carvedilol: 25 mg, By Mouth, 2 times a day Ezetimibe: TAKE 1 TABLET BY MOUTH EVERY DAY Isosorbide Mononitrate: 30 mg = 1 tablet, By Mouth, Daily in AM Nitroglycerin: 0.4 mg = 1 tablet, Sublingual, Every 5 minutes, PRN (as needed for chest pain), not to exceed 3 doses/15 min--if pain persists, seek medical attention * Gail Connors RN: PERFORM, MODIFY, MODIFY, MODIFY, MODIFY, SIGN, VERIFY Event Display: Progress Note Hospital Authored Date: Patient: JOSESITO ROE Age: 63 years Sex: Male : 1960 Associated Diagnoses: None Author: Gail Connors RN Findings Nursing Data Cardiac Data. : Cardiac Data. 09/05/2024 23:00 EST Cardiovascular Symptoms Hypertension Nail Bed Color, [place] Skin Temperature Upper Extremities Warm Skin Temperature Lower Extremities Warm Heart Sounds S1, S2 Capillary Refill < 3 seconds Dorsalis Pedis Pulse, Left Normal Dorsalis Pedis Pulse, Right Normal Cardiovascular WNL . Respiratory/Pulmonary Data. : Respiratory/Pulmonary Data. 09/06/2024 0:28 EST Respiratory Treatment(s) Cough and deep breathe 09/05/2024 23:36 EST Mode of Delivery (Oxygen) Room air 09/05/2024 23:00 EST Respiratory Symptoms None Respiratory effort Unlabored Cough No cough Respiratory pattern Regular All Lobes Breath Sounds Clear Respiratory Treatment(s) Cough and deep breathe Respiratory WNL except . Vital Signs : VITAL SIGNS SECTION 09/05/2024 23:41 EST Early Warning Score 1.00 09/05/2024 23:36 EST Temperature 98 DegF Temperature Route Oral Pulse Rate 50 bpm L Respiratory Rate 18 br/min Systolic Blood Pressure 138 mm Hg Diastolic Blood Pressure 86 mm Hg H Blood pressure sites Arm, left Mean Arterial Pressure 103 mm Hg Pulse Pressure 52 mm Hg Oxygen Saturation 100 % Mode of Delivery (Oxygen) Room air . Narrative/Incidental Asssumed care of patient at 2336, pt able to ambulate to unit bed without difficulty, steady gait, a/ox4, denies dizziness, following commands appropriately, afebrile, VS wnl. Strength equal to all extremities, pt endorses numbness and tingling to LLE, RIght toes, and LUE, all other neuros wnl. Resp irations even and unlabored on room air, LS CTA, pt denies sob. SB on tele, denies chest pain, +cmsand pps to all extremities, no edema. ABD soft, nontender +BS to all quads, pt denies N/V/D, tolerating PO intake without difficulty. States voiding in BR without difficulty, denies dysuria. Educatedpatient on plan of care and call thompson use, fall risk precautions in place, call thompson within reach. See CIS for full assessment data and flow sheets, hourly rounding maintained, will continue monitoring as needed. . Consult note * Mike Tillman MD: MODIFY, SIGN, VERIFY, MODIFY, SIGN, PERFORM Event Display: Consultation Note Authored Date: Patient: JOSESITO ROE Age: 63 years Sex: Male : 1960 Associated Diagnoses: None Author: Mike Tillman MD Visit Information Visit Type Type: Neurological consultation. 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 Today his s/s were assoc with palpitations flushing as he was back visit this brother and felt this s/s. He has been taking ASA, ECG SB and he currently denied HENDRICKSON but had a unusual HENDRICKSON earlier for which he took Tylenol as he felt malaise and feverish. No cough or N.v /d or speech language or facial changes. He state he had a couple of drinks today, usually does not have migraine or HENDRICKSON and had it new today. Past Medical History Problem list All Problems CAD (coronary artery disease) / [id number] / Confirmed Gout / 322472732 / Confirmed Hypertensive disorder / 6356010078 / Confirmed Obese class I / 354698744745023 / Confirmed Obesity / 5903306065 / Confirmed Prediabetes / 1573702744 / Confirmed Hyperlipidemia / 946309207 / Confirmed Transient cerebral ischemia / 134374416 / Confirmed Allergies Allergic Reactions (Selected) NKA Current medications (Selected) Prescriptions Prescribed amLODIPine 10 mg oral tablet: 1 tablet, By Mouth, Daily in AM, # 90 tablet, 1 Refills, Maintenance,03/29/24 14:01:00 EDT, [facility]/pharmacy #[id number], 188, cm, 03/29/24 13:54:00 EDT, Height, 107, kg, 11/03/23 1:48:00 EST, Dry Weight atorvastatin 80 mg oral tablet: 1 tablet, By Mouth, Daily, # 90 tablet, 1 Refills, Maintenance, 05/03/24 9:44:00 EDT, [facility] STORE [id number], 188, cm, 03/29/24 13:54:00 EDT, Height, 107, kg, 11/03/23 1:48:00 EST, Dry Weight nitroglycerin 0.4 mg sublingual tablet: 1 tablet = 0.4 mg, Sublingual, Every 5 minutes, PRN as needed for chest pain, not to exceed 3 doses/15 min--if pain persists, seek medical attention, # 25 tablet, 0 Refills, Maintenance, 02/14/21 15:42:00 EDT, Tablet, [facility]/pharmacy #[id number], Partial fill... Documented Medications Documented aspirin 81 mg oral delayed release tablet: 81 mg, 1, tablet, By Mouth, Daily, Refills 0, Maintenance, 01/06/23 9:12:00 EDT, Partial fill upon patient request if the prescription is for a schedule II opioid drug. carvedilol 25 mg oral tablet: 25 mg, By Mouth, 2 times a day, Refills 0, Maintenance, 07/30/24 12:19:00 EDT, Partial fill upon patient request if the prescription is for a schedule II opioid drug. ezetimibe 10 mg oral tablet: TAKE 1 TABLET BY MOUTH EVERY DAY isosorbide mononitrate 30 mg oral tablet, extended release: 1 tablet = 30 mg, By Mouth, Daily in AM, 0 Refills, Maintenance, 07/30/24 3:23:00 EDT, Partial fill upon patient request if the prescription is for a schedule II opioid drug. Surgical History Procedure/Surgical Profile Tonsillectomy, primary or secondary; younger than age 12 (CPT4 65045). Insertion of coronary artery stent (SNOMED CT [id number]). Social History Social History Alcohol Details: Use: Past. Frequency: 1-2 times per month. Other: quit 12/2022. 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 Exercise Details: Self assessment: Good condition. Regular exercise: No. Home/Environment Details: Living situation: Home/Independent. Lives with: Alone. Nutrition/Health Details: Diet: Regular. Substance Abuse Details: Use: Past. Type: Marijuana. Other: quit in 1981. Tobacco Details: Use: Former smoker, quit more than 30 days ago. Other: Last cigarette was early 2020. Hx 1/2 pack per month for 20 years.. Electronic Cigarette/Vaping Details: Electronic Cigarette Use: Never. . Family History no stk at young age in family Review of Systems Review of Systems Significant. Physical Examination Vital Signs Vitals: Vitals : VITAL SIGNS SECTION 09/05/2024 20:59 EST Pulse Rate 55 bpm Respiratory Rate 16 br/min Systolic Blood Pressure 156 mm Hg H Diastolic Blood Pressure 91 mm Hg H Blood pressure sites Arm, left Pulse Pressure 65 mm Hg Oxygen Saturation 98 % Mode of Delivery (Oxygen) Room air 09/05/2024 20:02 EST Temperature 98.6 DegF Temperature Route Oral Pulse Rate 60 bpm Respiratory Rate 20 br/min Systolic Blood Pressure 145 mm Hg H Diastolic Blood Pressure 94 mm Hg H Blood pressure sites Arm, left Mean Arterial Pressure 111 mm Hg Pulse Pressure 51 mm Hg Oxygen Saturation 96 % Mode of Delivery (Oxygen) Room air . Physical Examination NIH Stroke Scale on arrival Level of Consciousness for Stroke Scale : Alert Response Month/Age : Answers both questions correctly Response Open/Close Eyes : Performs both tasks correctly Best Gaze : Normal Visual : No visual loss Facial Palsy : Normal symmetrical movements Motor Function Left Arm : No drift Motor Function Right Arm : No drift Motor Function Left Leg : No drift Motor Function Right Leg : No drift Limb Ataxia : Absent Sensory : Mild to moderate sensory loss Best Language : No aphasia Dysarthria NIH Stroke Scale : Normal Extinction and Inattention : No abnormality NIH Stroke Scale Score : 1 Results Review General results Lab / Imaging Results Laboratory 09/05/2024 21:03 EST Glucose, POC 90 mg/dL 09/05/2024 20:47 EST WBC 5.5 k/mm3 RBC 4.28 m/mm3 L Hgb 13.4 Gm/dL L Hct 40.0 % L MCV 93.5 femtoliters MCH 31.3 pg MCHC 33.5 Gm/dL Platelet Count 260 k/mm3 RDW-SD 41.8 femtoliters MPV 9.4 femtoliters Nucleated RBC (Automated) 0.0 #/100 WBC'S Abs. NRBC 0.0 k/mm3 Abs. Neut 2.9 k/mm3 Abs. Lymph 1.6 k/mm3 Abs. [place] 0.7 k/mm3 Abs. Eo 0.2 k/mm3 Abs. Baso 0.0 k/mm3 Neut % 53.9 % Lymph % 28.8 % [place] % 11.9 % H Eos % 4.0 % Baso % 0.7 % Imm Gran 0.7 % Abs. Imm Gran 0.0 k/mm3 INR 1.0 Protime (PT) 10.9 seconds APTT 23.6 seconds Hold Gel Top SPECIMEN DISCARDED AFTER 1 WEEK Imaging : RADIOLOGY 09/05/2024 20:55 EST CT Head-Hyper Acute Stroke CT Head-Hyper Acute Stroke CT Angio Head Hyperacute Stroke CT Angio Head Hyperacute Stroke (In Progress) Impression and Plan COMPREHENSIVE PLAN Impression: Numbness atypical left UE and RLE, with ?prior neuropathy with prediabetes, vs radic though no pain , not lytic candidate as improved s.s and mild numbness, DD: rule out stroke vs atypical migraine vs neuropathy Plan Admit for tele neurochecks per unit std ASA 81mg daily Rehab considered: Not needed swallow screen once passed AHA diet with low NA+ BP control aim for SBP below 180, and senior living 6 weeks BP goal less than 130/80 Recc zetia/statin for goal LDL<70 MRI brain no letty when feasible ordered Thanks. elvi WALLER MD staff and patient and Stroke education given to patient ;DD discussed and explained to call alert staff if any new changes, pager [phone] Stroke Management TPA Considered DVT prophylaxis Antiplatelet therapy Aspirin Note * Angelica Mistry RN: PERFORM Event Display: Discharge/Transfer Note Hospital Authored Date: [id number] Nursing Discharge Note Entered On: 09/06/2024 13:14 EST Performed On: 09/06/2024 13:14 EST by Angelica Mistry RN Nursing Discharge Note 2 Discharge Level of Care at Discharge : Home/Fdc/Foster Care Patient Left Unit Via : Ambulatory Patient Accompanied Off Unit with : Responsible adult DC Instructions Provided & Signed by Pt : Yes Patient Understands D/C Instructions : Yes Patient Instructions Discharge Signed : Yes Did Pt have Specialty Bed or Wound Vac : No Angelica Mistry RN - 09/06/2024 13:14 EST * Oniel LAMBERT, [facility]: PERFORM Event Display: Discharge/Transfer Note Hospital Authored Date: [id number] Patient: ??JOSESITO ROE ? Age:??63 Years?Sex:??Male?:??1960?? Patient Information Discharge Location: D3B Primary Care Physician: Verónica LAMBERTMelanie Admit Date/Time: 09/05/2024 19:31 Discharge Date:??09/06/2024 12:50 Discharge Disposition Discharge Disposition: Home: No Services Discharge Diagnosis Numbness, limb (R20.0) CVA (cerebral vascular accident) (I63.9) Anemia (D64.9) Bradycardia (R00.1) HTN (hypertension) (I10) HLD (hyperlipidemia) (E78.5) CAD (coronary artery disease) (I25.10) Prediabetes (R73.03) _ Discharge Medications Amlodipine (amLODIPine 10 mg oral tablet)?1?tab(s)?By Mouth?Daily in AM Aspirin (aspirin 81 mg oral delayed release tablet)?81?Milligram?1?tablet?By Mouth?Daily Atorvastatin (atorvastatin 80 mg oral tablet)?1?tab(s)?By Mouth?Daily Carvedilol (carvedilol 25 mg oral tablet)?25?Milligram?By Mouth?2 times a day Ezetimibe (ezetimibe 10 mg oral tablet)?TAKE 1 TABLET BY MOUTH EVERY DAY Isosorbide Mononitrate (isosorbide mononitrate 30 mg oral tablet, extended release)?1?tab(s)?30?Milligram?By Mouth?Daily in AM Nitroglycerin (nitroglycerin 0.4 mg sublingual tablet)?1?tab(s)?0.4?Milligram?Sublingual?Every 5 minutes?as needed?as needed for chest pain?not to exceed 3 doses/15 min--ifpain persists, seek medical attention ?? Medications Started None Medications Discontinued None Doses Changed None Allergies Allergies ?(Active and Proposed Allergies Only) NKA? (Severity: Unknown severity, Onset: Unknown) ? PCP Follow-Up/Heads-Up Follow up labs done during the hospitalization Future Appointments 2023 10:10 AM EST ?? With: Verónica LAMBERT, Melanie Where: [facility] [address] [place] [address]- Status: Pending Objective Diagnoses Anemia ??(D64.9) Bradycardia ??(R00.1) CAD (coronary artery disease) ??(I25.10) CVA (cerebral vascular accident) ??(I63.9) HLD (hyperlipidemia) ??(E78.5) HTN (hypertension) ??(I10) Numbness, limb ??(R20.0) Prediabetes ??(R73.03) ?? 63-year-old male with PMH including HTN, HLD, CAD (NSTEMI s/p SALLIE on mid LAD in 2020), prediabetes,TIA, gout, chronic left foot drop, obesity.??Patient presented to ER with??complaints of numbness involving left upper extremity and right lower extremity. ?? CVA (cerebral vascular accident) (I63.9) Numbness, limb (R20.0) Presented with numbness of the left upper extremity and right foot.?? Stroke work up with ?? CT brain reported No acute intracranial pathology. ?? CTA head/neck- No acute intracranial large vessel occlusion. Severe focal stenosis of the nondominant proximal V4 segment of the right vertebral artery is more pronounced. No hemodynamically-significant stenoses of the extracranial internal carotid and vertebral arteries. Mild soft plaque and mild narrowing of the proximal left subclavian artery. ?? Continue aspirin 81mg daily. Continue statin and??Zetia??Goal LDL??less than 70. Patient has had recent??A1c and??lipid panel done??last month. ?? MRI of the brain reported?? No acute infarct. A small FLAIR bright focus within the right frontal white matter is unchanged. This is nonspecific, but compatible with chronic microangiopathic/small vessel ischemic change. ?? Patient was??evaluated by??neurology- opined given residual LUE and RLE sensory changes, MRI C spine negative for cord signal abnormality??and??MRI negative for acute stroke- atypical sensory distribution- advised to??obtain Lyme, SPEP and immunofixation electrophoresis (ALIZA) Follow up labs w/ PCP ?? HTN (hypertension) (I10):??Continue??amlodipine and??Coreg.? HLD (hyperlipidemia) (E78.5):??Continue??statin.? Prediabetes (R73.03):??Optimize glucose control. ?? CAD (coronary artery disease) (I25.10):??Continue aspirin, statin, Imdur,??Coreg. ?? Bradycardia (R00.1):??Noted to have bradycardia. TSH done during last month was normal.??Monitor heart rate.??May need to reduce beta-praful if persistent bradycardia. ?? Anemia (D64.9):??At baseline, monitor. ?? Patient seen and examined at bedside Denies any acute complaints Explained to him about the imaging findings, and recommendations by??neurology. He verbalized understanding. ?? Gen: AAO*3; RS: CTA b/l; CVS: regular; Abd: Soft Non tender, non distended; Neuro AAO*3, ambulatory; left foot drop chronic in nature; mild sensory??sensory changes of the left upper and right lower extremity present on admission and improved but not completely resolved?? Measurements?? Height: 188 cm (09/06/24) Weight: 111.1 kg (09/05/24) Dry Weight: 111.1 kg (09/05/24) Body Mass Index:??31.43 kg/m2??Critical (09/05/24) ? Vital Signs?? Temperature: 98.3 DegF (09/06/24 10:47:00) Temperature Route: Oral (09/06/24 10:47:00) Pulse Rate: 56 bpm (09/06/24 10:47:00) Respiratory Rate: 20 br/min (09/06/24 10:47:00) Systolic Blood Pressure: 126 mm Hg (09/06/24 10:47:00) Diastolic Blood Pressure: 75 mm Hg (09/06/24 10:47:00) Blood pressure sites: Arm, left (09/06/24 10:47:00) Mean Arterial Pressure: 92 mm Hg (09/06/24 10:47:00) Pulse Pressure: 51 mm Hg (09/06/24 10:47:00) Oxygen Saturation: 99 % (09/06/24 10:47:00) Mode of Delivery (Oxygen): Room air (09/06/24 10:47:00) Early Warning Score: 0 (09/06/24 10:47:50) ? Consultants Mike Tillman MD?? Pending Results Immunofixation Serum ordered on 09/06/2024 Lyme Disease Ab Screen ordered on 09/06/2024 Protein Electrophoresis ordered on 09/06/2024 Follow-Up Appointments Added Follow Up ?Time Frame ?Comments Melanie Sanches?09/09/2024 10:10 Post Discharge Care Discharge ?09/06/24 12:48:00 EST ?Order Comment:?? Discharge Prescriptions ?None, 09/06/24 12:48:00 EST ?Order Comment:?? 38??minutes spent on discharge * Angelica Mistry RN: PERFORM, MODIFY Event Display: Patient Education/Instruction Authored Date: [id number] Inpatient Adult Discharge Instructions. [address] [address] Name: JOSESITO ROE : 1960?? Visit: 09/05/2024 19:31?? Current Date: 09/06/2024 12:56 ?? Account: [id number]?? Inpatient Adult Discharge Instructions We would like to thank you for allowing us to assist you with your healthcare needs. The following includes patient education materials and information regarding your injury/illness. Our entire staffstrives to provide an excellent experience for our patients and their families. PLEASE ENSURE YOU FOLLOW-UP PER THE INSTRUCTIONS BELOW! ?? YOUR OPINION IS IMPORTANT TO US! Please complete the survey you may receive by mail or email. Your feedback will be used to make improvements to the healthcare experiences of our patients and their families. Surveys are administered by [employer] ?? If further treatment with your primary care physician or another doctor is recommended, it is important for you to keep the appointment. Call your primary care physician or return to the Emergency Department immediately if your condition worsens, fails to improve, or new symptoms develop. If you need to find a doctor, you can call [facility] Link for a referral at [phone] or toll free at [phone] ([phone]) or log in to [email or web address].. ?? [facility], in keeping with [facility] guidance, no longer requires face masks for staff, patientsor visitors in most situations. Similiar to time spent indoors at other locations, there is the chance that you were exposed to repiratory viruses during your time with us (such as flu or COVID-19). If you develop symptoms concerning for a viral respiratory infection, please seek testing (and treatment if indicated) from your medical provider or home test kit. ?? You can view and manage your care through the patient portal or by using a health care nellie of your choosing. [employer] is a website that allows you to securely view your medical information including your hospital discharge summary, office visit summaries, medications and follow-up visits. You can also request appointments, renew medications, and request access to your medical information using a health care nellie of your choosing, or just ask a question. You can enroll at [email or web address] or register during your next office visit. You have been discharged from [facility], Patient Care Unit: D3B??. If you have any questions regarding these instructions, including results of studies pending, afteryou leave, please call us and we will be happy to assist you 19/05. [facility] Your Care Team Attending Physician Miranda Engle MD?? Consulting Providers Miranda Engle MD?? Discharging Providers Miranda Engle MD Reason for Your Visit coming from home for c/o numbness to L arm and feet, started around 1830. Pt also reports heartburnand plapation. 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 Your Diagnosis Anemia Bradycardia CAD (coronary artery disease) CVA (cerebral vascular accident) HLD (hyperlipidemia) HTN (hypertension) Prediabetes Tests Performed Below is a partial list of the tests performed during your hospitalization. You may have had other tests and procedures not included in this list. Please discuss all test results with your provider. AST Basic Metabolic Panel CBC w/ Differential GLUCOSE POC High Sensitivity Troponin T HOLD GEL TUBE Immunofixation Serum?-- Results Pending -- PT (INR) PTT Troponin T, High Sensitivity Type and Screen CT Angio Head Hyperacute Stroke CT Angio Neck Hyperacute Stroke CT Head-Hyper Acute Stroke MRI Brain W/O Contrast XR Chest 2 Views Frontal and Lat AST?? Add On Lab Order?? Basic Metabolic Panel?? CBC w/ Differential?? CT Angio Head Hyperacute Stroke?? CT Angio Neck Hyperacute Stroke?? CT Head-Hyper Acute Stroke?? Glucose POC?? High??Sensitivity??Troponin T (Troponin T, High Sensitivity)?? Hold Gel Top Tube (HOLD GEL TUBE)?? INR (PT (INR))?? Immunofixation Serum?? Lyme Disease Ab Screen?? MRI Brain W/O Contrast?? PTT?? Protein Electrophoresis (SPEP)?? Type and Screen?? Chest 2 Views Frontal and Lat (XR Chest 2 Views Frontal and Lat)?? Primary Care Provider Melanie Sanches MD? Advance Directive Health Care Proxy on File Yes - Health Care Proxy Discharge Vitals Temperature: 98.3 DegF Height: 188 cm Pulse Rate: 56 bpm Weight: 111.1 kg Respiratory Rate: 20 br/min Body Mass Index:??31.43 kg/m2??Critical Systolic Blood Pressure: 126 mm Hg Body surface area: 2.41 Diastolic Blood Pressure: 75 mm Hg ?? Oxygen Saturation: 99 % ?? Studies Pending All studies ordered during this hospital stay have been completed unless listed below. Please discuss all pending results with your provider listed above in these instructions. ?? Add On Lab Order?? Immunofixation Serum?? Lyme Disease Ab Screen?? Protein Electrophoresis (SPEP)?? What to do next Instructions From Your Doctor ?? Orders? 09/06/24 12:48:00 EST?? Prescriptions??, ??09/06/24 12:48:00 EST?? Scheduled Follow-Up Appointments 2023 10:10 AM EST ?? With: Melanie Sanches MD Where: [facility] [address] [place] [address]- Status: Pending You Need to Schedule the Following Appointments Follow Up with??Melanie Sanches When:??09/09/2024 10:10 AM EST Where: [address] [place] [id number] Business (1) Discharge Medications JOSESITO ROE :1960 Visit Date:09/05/2024 Medications: Please continue your medications until treatment is completed or stopped by your provider. Medications not listed below should be discontinued. Discuss any questions related to medications with your provider. What How Much When Instructions Next Dose Unchanged Amlodipine (amLODIPine 10 mg oral tablet) 1 tab(s) Oral Daily in the morning September 07, 2024 morning dose Unchanged Aspirin (aspirin 81 mg oral delayed release tablet) 1 tab(s) Oral Daily September 07, 2024 morning dose Unchanged Atorvastatin (atorvastatin 80 mg oral tablet) 1 tab(s) Oral Daily September 07, 2024 morning dose Unchanged Carvedilol (carvedilol 25 mg oral tablet) 25 Milligram Oral Twice a day September 06, 2024 evening dose Unchanged Ezetimibe (ezetimibe 10 mg oral tablet) TAKE 1 TABLET BY MOUTH EVERY DAY ?? resume as prescribed Unchanged Isosorbide Mononitrate (isosorbide mononitrate 30 mg oral tablet, extended release) 1 tab(s) Oral Daily in the morning September 07, 2024 morning dose Unchanged Nitroglycerin (nitroglycerin 0.4 mg sublingual tablet) 1 tab(s) Sublingual Every 5 minutes as needed for as needed for chest pain not to exceed 3 doses/ 15 min--if pain persists, seek medical attention ?? resume as prescribed Prescription Given During Visit No new medications prescribed at time of discharge.?? Laboratory Results Below is a partial list of the most recent Laboratory test results done prior to this discharge. You may have had other tests and procedures not included in this list. Please discuss all test resultswith your provider. Est Creatinine Clearance - 91.14 mL/min (09/05/2024) AST (09/05/2024) ???AST (SGOT) - 33 units/L Basic Metabolic Panel (09/05/2024) ???Sodium - 137 mmol/L???Potassium - 4.3 mmol/L???Chloride - 102 mmol/L???Bicarbonate Level - 23 mmol/L???Anion Gap - 12???Glucose Level - 98 mg/dL???BUN - 18 mg/dL???Creatinine-Blood - 0.99 mg/dL???Estimated GFR Creatinine - 87 ML/MIN/1.73 M2???Calcium - 9.2 mg/dL CBC w/ Differential (09/05/2024) ???WBC - 5.5 k/mm3???RBC - 4.28 m/mm3???Hgb - 13.4 Gm/dL???Hct - 40.0 %???MCV - 93.5 femtoliters???MCH - 31.3 pg???MCHC - 33.5 Gm/dL???Platelet Count - 260 k/mm3???RDW-SD - 41.8 femtoliters???MPV - 9.4 femtoliters???Nucleated RBC (Automated) - 0.0 #/100 WBC'S???Abs. NRBC - 0.0 k/mm3???Abs. Neut - 2.9 k/mm3???Abs. Lymph - 1.6 k/mm3???Abs. [place] - 0.7 k/mm3???Abs. Eo - 0.2 k/mm3???Abs. Baso - 0.0 k/mm3???Neut % - 53.9 %???Lymph % - 28.8 %???[place] % - 11.9 %???Eos % - 4.0 %???Baso % - 0.7 %???Imm Gran - 0.7 %???Abs. Imm Gran - 0.0 k/mm3 GLUCOSE POC (09/05/2024) ???Glucose, POC - 90 mg/dL High Sensitivity Troponin T (09/05/2024) ???High Sensitivity Troponin (HSTnT) - 29 ng/L HOLD GEL TUBE (09/05/2024) ???Hold Gel Top - SPECIMEN DISCARDED AFTER 1 WEEK PT (INR) (09/05/2024) ???INR - 1.0???Protime (PT) - 10.9 seconds PTT (09/05/2024) ???APTT - 23.6 seconds Troponin T, High Sensitivity (09/05/2024) ???High Sensitivity Troponin (HSTnT) - 29 ng/L Type and Screen (09/05/2024) ???Blood Type - A Positive???Antibody Screen - Negative You will be contacted within 72 hours with your results. Immunizations This Visit Not Given Vaccine Commentsinfluenza virus vaccine, inactivated Expectation Not Necessary Pt to get c PCP Allergies (NKA means No Known Allergies) NKA Problems Active Problems??(8) CAD (coronary artery disease)?? Gout?? Hyperlipidemia?? Hypertensive disorder?? Obese class I?? Obesity?? Prediabetes?? Transient cerebral ischemia?? Education Materials Below is the list of Educational Leaflet Providered with your Discharge Instructions. Valuables and Belongings I fully understand and agree that [facility] accepts no responsibility for all my personal property including clothing, toilet articles, radios, jewelry, dentures, hearing aids, rings, money, or any other property that is in my possession or is brought to me after admission. I understand certain valuables may be placed in a hospital safe for a short period of time. I understand that the hospital is not liable for loss or damage due to accident, fire, or other natural occurrence while said property is in the safe. I accept full responsibility for any personal property that I keep with me, and will not hold the hospital responsible in case of loss or disappearance. I acknowledge that i have been encouraged to send valuables and belongings home. ?? Review of Valuable and Belonging List: With patient Date for Pt to Sign Valuables/Belongings: 09/05/24 23:31:00 ?? Other Discharge Information ? Pulmonary Rehab Status?? Pulmonary Rehab Discharge Status?? Respiratory Rate: 20 br/min ? Common Emergency Awareness Tips IS IT A STROKE? Act FAST and Check for these signs: FACE Does the face look uneven? ARM Does one arm drift down? SPEECH Does their speech sound strange? TIME Call at any sign of stroke ?? Heart Attack Signs Chest discomfort: Most heart attacks involve discomfort in the center of the chest and lasts more than a few minutes, or goes away and comes back. It can feel like uncomfortable pressure, squeezing, fullness or pain. Discomfort in upper body: Symptoms can include pain or discomfort in one or both arms, back, neck, jaw or stomach. Shortness of breath: With or without discomfort. Other signs: Breaking out in a cold sweat, nausea, or lightheaded. Remember, MINUTES DO MATTER. If you experience any of these heart attack warning signs, call to get immediate medical attention! ?? Smoking can increase your chances of developing chronic health problems and can cause harmful effects to other family members in your house. If you smoke, you are strongly encouraged to quit. Please call [facility] [employer] Link at [phone] or [phone] ([phone]) or log in to [email or web address] for referrals to smoking cessation programs. ?? 946 Suicide & Crisis Lifeline is available 19/05 if you or someone you know needs to find a reason to keep living. By calling 176 you'll be connected to a skilled, trained counselor at a crisis center in your area. INPATIENT DISCHARGE INSTRUCTIONS SIGNATURE PAGE JOSESITO ROE Location:[facility] Registration Date and Time:09/05/2024 19:31 EST Primary Care Physician: Verónica LAMBERT, BelindaArsalan, Attending Physician: Oniel LAMBERT, Miranda, I JOSESITO ROE, have received the above patient education materials/instructions and have verbalized understanding. If ambulance or transport services are being used I further acknowledge being given a choice of service. ?? If you need to contact me, please call me at this number: . Patient/Weighbridge Operator Name: Patient/Weighbridge Operator Signature: Relationship to Patient: Witness Name/Signature: Date: * Delores Engle MDesh: PERFORM, SIGN, VERIFY Event Display: Patient Education Handout Authored Date: Patient Care team information Care Team Personnel Name: Michelle Quinn RN Position: S RN Member Role: Primary Care Nurse Name: Kalyani Cintron RN Position: S RN Member Role: Primary Care Nurse Name: Melanie Sanches MD Position: [facility] Physician - Primary Care Member Role: PCP Address: Address: [address] [place] [address] Name: Rebecca Coombs RN Position: [facility] Onco RN Member Role: Primary Care Nurse Name: Angelica Mistry RN Position: S RN Member Role: Primary Care Nurse Name: Martin EDWARD, Lorenza Brannon Position: S RN Member Role: Primary Care Nurse Care Team Related Persons Name: JEANIE WOOD Address: home [address] [place] [address] Name: HERBERTH ROE Address: [address] [address] Name: NAVIN ROE Address: [address] [address]
--- OUTSIDE RECORDS SUMMARY | 2024-10-06 23:09 | XMS_ITS | Continuity of Care Document ---
Author Organization [facility] Address [address] [place] [id number]- Care Team Providers Care Human Resources Assistant Name Role Phone Melanie Sanches MD Primary Care Physician Encounter [facility] Date(s): 08/23/24 - 09/22/[address] [address] Attending Physician: Admtr, Ar8 Admitting Physician: Admtr, Ar8 Referring Physician: Admtr, Ar8 Encounter Type: Triage Allergies, Adverse Reactions, Alerts No Known Allergies Immunizations Given and Recorded Vaccine Date Status Refusal Reason tetanus-diphtheria toxoids (Td) 03/29/24 Given influenza virus vaccine, inactivated 08/18/23 John rded SARS-CoV-2(COVID-19)mRNA-LNP vac([id number]) 08/18/23 Recorded SARS-CoV-2 mRNA (ihvvtoq-caep-epore) vax 02/07/22 Recorded SARS-CoV-2 (COVID-19) mRNA BNT-162b2 vac 09/17/21 Recorded SARS-CoV-2 (COVID-19) mRNA BNT-162b2 vac 03/08/21 Recorded SARS-CoV-2 (COVID-19) mRNA-1273 vaccine 02/08/21 R ecorded Medications amLODIPine 10 mg oral tablet 1 tablet, By Mouth, Daily in AM, # 90 tablet, 1 Refills, Maintenance, 03/29/24 2:01:00 PM EDT, [id number], 188, cm, 03/29/24 13:54:00 EDT, Height, 107, kg, 11/03/23 1:48:00 EST, Dry Weight Start Date: 03/29/24 Status: Ordered Quantity: 90.0 Unit: tablet Repeat number: 2 aspirin 81 mg oral delayed release tablet 81 mg, 1, tablet, By Mouth, Daily, Refills 0, Maintenance, 01/06/23 9:12:00 AM EDT, Partial fill upon patient request if the prescription is for a schedule II opioid drug. Start Date: 01/06/23 Status: Ordered Repeat number: 1 atorvastatin 80 mg oral tablet 1 tablet, By Mouth, Daily, # 90 tablet, 1 Refills, Maintenance, 05/03/24 9:44:00 AM EDT, [id number], 188, cm, 03/29/24 13:54:00 EDT, Height, 107, kg, 11/03/23 1:48:00 EST, Dry Weight Start Date: 05/03/24 Status: Ordered Quantity: 90.0 Unit: tablet Repeat number: 1 carvedilol 25 mg oral tablet 25 mg, By Mouth, 2 times a day, Refills 0, Maintenance, 07/30/24 12:19:00 PM EDT, Partial fill upon patient request if the prescription is for a schedule II opioid drug. Start Date: 07/30/24 Status: Ordered Repeat number: 1 ezetimibe 10 mg oral tablet TAKE 1 TABLET BY MOUTH EVERY DAY Start Date: 12/14/21 Status: Ordered Repeat number: 1 isosorbide mononitrate 30 mg oral tablet, extended release 1 tablet = 30 mg, By Mouth, Daily in AM, 0 Refills, Maintenance, 07/30/24 3:23:00 AM EDT, Partial fill upon patient request if the prescription is for a schedule II opioid drug. Start Date: 07/30/24 Status: Ordered Repeat number: 1 nitroglycerin 0.4 mg sublingual tablet 1 tablet = 0.4 mg, Sublingual, Every 5 minutes, PRN as needed for chest pain, not to exceed 3 doses/15 min--if pain persists, seek medical attention, # 25 tablet, 0 Refills, Maintenance, 02/14/21 3:42:00 PM EDT, Tablet, [id number], Partial fill upon patient request if the prescription is fora schedule II opioid drug., 187, cm, 02/14/21 14:43:00 EDT, Height, 102.2, kg, 01/27/21 1:38:00 EDT, Dry Weight Start Date: 02/14/21 Status: Ordered Quantity: 25.0 Unit: tablet Repeat number: 1 Problem List Condition Confirmation Course Effective Dates Status H ealth Status Informant CAD (coronary artery disease) Confirmed Active Degenerative cervical spinal stenosis Confirmed Active Foot drop, left Confirmed Active Gout Confirmed Active Hypertensive disorder [...] right vertebral and moderate at right proximal MANAGER STRATEGIC SOURCING, 1 mm focus of enhancement at the [...] Smoking cessation. Outpatient follow up with neurology. Social History Social History Type Response Smoking Status Former smoker, quit more than 30 days ago; Other: Last cigarette was early 2020. Hx 1/2 pack per month for 20 years.; entered on: 12/14/21 Sex Sex Representation Male (finding) Patient Care team information Care Team Personnel Name: Michelle Quinn RN Position: [facility] RN Member Role: Primary Care Nurse Name: Kalyani Cintron RN Position: [facility] RN Member Role: Primary Care Nurse Name: Melanie Sanches MD Position: [facility] Physician - Primary Care Member Role: PCP Address: [address] [place] [address]- Telecom: Name: Rebecca Coombs RN Position: [facility] Onco RN Member Role: Primary Care Nurse Name: Angelica Mistry RN Position: [facility] RN Member Role: Primary Care Nurse Name: Martin EDWARD, Lorenza Brannon Position: S RN Member Role: Primary Care Nurse Care Team Related Persons Name: JEANIE WOOD Name: HERBERTH ROE Name: NAVIN ROE Insurance Providers Guarantor name: NIDIA JYOTHI Health Plan Information #: 1 Payer: [employer] Member Number: NA Policy Number: NA Group Number: NA
== END 2024-10-06 08:43 | disposition home or self-care (01) ==
LOC: HO.NEURO 08:42
PROVIDERS: PCP Internal Medicine; Visit Provider Physician Assistant
DX: R20.0 Anesthesia of skin (principal); R20.2 Paresthesia of skin
CPT/HCPCS: 95885; 95886; 95909

== ENCOUNTER → 2024-10-06 09:00 | Outpatient (BNV) | payer BC, SELFPAY | PROVIDERS: PCP Internal Medicine; Visit Provider Physical Medicine & Rehabilitation | DX: M54.16 Radiculopathy, lumbar region (principal) | CPT/HCPCS: 95885; 95886; 95909 ==

== ENCOUNTER 2024-12-16 14:14 | Outpatient (AMB) | payer BC, SELFPAY ==
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
--- OUTSIDE RECORDS SUMMARY | 2024-12-16 15:22 | XMS_ITS | Clinical Summary ---
Author Organization [facility] Facility Address [address] [place] [address] Care Team Providers Care Pet Trainer Name Role Phone Unavailable Primary Care Provider Unavailabl e Social History Tobacco Use Types Packs/Day Years Used Date Smoking Tobacco: Never Assessed Sex and Gender Information Value Date Recorded Sex Assigned at Not on file Legal Sex Male 2:34 PM EST Gender Identity Not on file Sexual Orientation Not on file Plan of Treatment Health Maintenance Due Date Last Done Comments Colorectal Cancer Screening: Annual FOBT 2011 Colorectal Cancer Screening: Colonoscopy 2011 Colorectal Cancer Screening: Sigmoidoscopy 2011 Influenza Vaccine (#1) 2024 Hepatitis B Vaccine Aged Out No longe r eligible based on patient's age to complete this topic Pneumococcal Vaccine: Pediat rics (0 to 5 Years) and At-Risk Patients (6 to 64 Years) Aged Out No longer eligible b ased on patient's age to complete this topic Insurance [facility]
--- OUTSIDE RECORDS SUMMARY | 2024-12-16 15:22 | XMS_ITS | Clinical Summary ---
Author Organization [address] [place] [address] Address [address] [place] [address] Phone Care Team Providers Care Wholesale Parts Salesperson Name Role Phone Melanie Sanches MD Primary Care Provider [phone] Allergies No known active allergies Medications carvediloL (COREG) 25 mg tablet Take 1.5 Tablets by mouth 2 times daily (with meals). 05/30/2023 Active ezetimibe (ZETIA) 10 mg tablet Take 1 tablet (10 mg total) by mouth 1 (one) time each day. 01/13/2024 Active amLODIPine (NORVASC) 5 mg tablet Take 5 mg by mouth daily. Active nitroglycerin (NITROSTAT) 0.[address] 1 Tab under the tongue every 5 minutes as needed for Chest pain. 01/18/2021 Active aspirin 81 mg EC tablet Take 1 tablet (81 mg total) by mouth 1 (one) time each day. Active atorvastatin (LIPITOR) 80 mg tablet Take 1 tablet (80 mg total) by mouth 1 (one) time each day. Active Active Problems Problem Noted Date Diagnosed Date Hyperlipidemia 08/07/2024 Dysrhythmia 06/03/2022 Hypotension 06/03/2022 Orthostatic hypotension 06/03/2022 NSTEMI (non-ST elevated myocardial infarction) 0 06/03/2022 Palpitations 06/03/2022 Vasovagal episode 06/03/2022 Coronary artery disease 02/13/2021 Hypertensive disorder 01/15/2021 Obesity 01/15/2021 Medical History Medical History Date Comments Gout DX:Gout Hyperglycemia DX:Hyperglycemia Hyperlipidemia DX:Hyperlipidemi a COVID-19 virus infection DX:COVI D-19 virus infection Hyperkalemia DX:Hyperkalemia Dizziness 06/03/2022 DX:Dizziness Vertigo DX:Vertigo Generalized weakness DX:Generali zed weakness Dehydration DX:Dehydration Anemia DX:Anemia Lightheaded DX:Lightheaded Family History Medical History Relation Name Comments Coronary artery disease Father Relation Name Status Comments Father Social History Tobacco Use Types Packs/Day Years Used Date Smoking Tobacco: Former Smokeless Tobacco: Never Alcohol Use Standard Drinks/Week Comments Not Currently 0 (1 standard drink = 0.6 oz pur e alcohol) Sex and Gender Information Value Date Recorded Sex Assigned at Not on file Legal Sex Male 6:24 AM EST Gender Identity Not on file Sexual Orientation Not on file Obstetrics History Last Filed Vital Signs Vital Sign Reading Time Taken Comments Blood Pressure 147/88 07/16/2024 8:20 AM EDT Sit ting L Arm Pulse 53 07/16/2024 8:20 AM EDT Temperature - - Respiratory Rate - - Oxygen Saturation - - Inhaled Oxygen Concentration - - Weight 114 kg (252 lb) 07/16/2024 8:20 AM EDT Height 188 cm (6' 2 ) 07/16/2024 8:20 AM EDT Body Mass Index 32.35 07/16/2024 8:20 AM EDT Plan of Treatment Health Maintenance Due Date Last Done Comments DTaP,Tdap,and Td Vaccines (1 - Tdap) 1981 Pneumococcal Vaccine: 50+ Ye ars (1 of 1 - PCV) 2012 Zoster Vaccines (1 of 2) 2012 Colorectal Cancer Screening: Colonoscopy 10/05/2022 Depression Screening 10/05/2022 HIV Screening 10/05/2022 Hepatitis C Screening 10/05/2022 Social Influencers of Health Screening 10/05/2022 COVID-19 Vaccine (1 - 2023-2 5 season) 2024 Influenza Vaccine (#1) 2024 Hypertension/CHF/CAD Annual BMP Blood Test 10/22/2024 10/22/2023 Cholesterol Screening (Lipid Panel) 10/22/2028 10/22/2023 RSV Immunization Patients 60 + Years Old (1 - 1-dose 75+ series) 2037 HIB Vaccines Aged Out No longer eligi ble based on patient's age to complete this topic HPV Vaccines Aged Out No longer eligi ble based on patient's age to complete this topic Hepatitis A Vaccines Aged Out No long er eligible based on patient's age to complete this topic Hepatitis B Vaccines Aged Out No long er eligible based on patient's age to complete this topic IPV Vaccines Aged Out No longer eligi ble based on patient's age to complete this topic MMR Vaccines Aged Out No longer eligi ble based on patient's age to complete this topic Meningococcal ACWY Vaccine Aged Out N o longer eligible based on patient's age to complete this topic Meningococcal B Vacine Aged Out No lo nger eligible based on patient's age to complete this topic Pneumococcal Vaccine: Pediat rics (0 to 5 Years) and At-Risk Patients (6 to 64 Years) Aged Out No longer eligi ble based on patient's age to complete this topic RSV Immunization Patients Un viri 20 months Aged Out No longer eligible b ased on patient's age to complete this topic Varicella Vaccines Aged Out No longer eligible based on patient's age to complete this topic Procedures Procedure Name Priority Date/Time Associated Diagnosis Comments ANNUAL BMP BLOOD TEST Routine 10/22/2023 LIPID PANEL Routine 10/22/2023 from Last 3 Months or Most Recently Relevant to Health Maintenance Results * Annual BMP Blood Test (10/22/2023) Pathologist [facility] Annual BMP Blood Test abstracted Historical Provider HEALTH MAINTENANCE Final Result * Lipid panel (10/22/2023) Pathologist [facility] LDL/HDL Ratio 0 0 - 0 Comment:no interpretation Triglycerides 0 0 - 0 mg/dL Comment:no interpretation Cholesterol 0 0 - 0 mg/dL Comment:no interpretation HDL 0 0 - 0 mg/dL Comment:no interpretation LDL Cholesterol 0 0 - 0 mg/dL Comment:no interpretation Blood Venous blood specimen / Unknown Historical Provider LAB BLOOD ORDERABLES Sherrell l Result from Last 3 Months or Most Recently Relevant to Health Maintenance Insurance [facility] Advance Directives Documents on File Type Date Recorded Patient Sales Specialist Expl anation Health Care Decision (hx) 12/28/2020 AD MOYER DIRECTIVE Health Care Decision (hx) 12/28/2020 AD MOYER DIRECTIVE Health Care Decision (hx) 12/28/2020 AD MOYER DIRECTIVE Health Care Decision (hx) 12/28/2020 AD MOYER DIRECTIVE Health Care Decision (hx) 12/27/2020 AD MOYER DIRECTIVE Health Care Decision (hx) 12/27/2020 AD MOYER DIRECTIVE Health Care Decision (hx) 12/27/2020 AD MOYER DIRECTIVE Health Care Decision (hx) 12/27/2020 AD MOYER DIRECTIVE Health Care Decision (hx) 12/27/2020 AD MOYER DIRECTIVE Health Care Decision (hx) 12/27/2020 AD MOYER DIRECTIVE Health Care Decision (hx) 12/27/2020 AD MOYER DIRECTIVE Health Care Decision (hx) 12/27/2020 AD MOYER DIRECTIVE Care Teams Wholesale Parts Salesperson Relationship Specialty Start Date End Date Melanie Sanches MD [address] [place] [address] PCP - General 05/19/24
== END 2024-12-16 14:38 | disposition home or self-care (01) ==
PROVIDERS: PCP Internal Medicine; Visit Provider Physician Assistant
DX: R20.0 Anesthesia of skin (principal)
CPT/HCPCS: 99213

== ENCOUNTER 2025-10-10 13:25 | Outpatient (AMB) | payer BC, SELFPAY ==
--- NOTE | 2025-10-10 13:45 | A.SPINEOV_ITS ---
Intake Visit Reasons: weak L leg & trouble walking Intake Note: Mr. Chaudhry is here today c/o weak left leg and trouble walking. Field Training Manager Required: No Allergies No Known Allergies Allergy (Verified 12/16/24 14:18) Assessment & Plan Assessment & Plan (1) Weakness of left foot: Code(s): R29.898 - Other symptoms and signs involving the musculoskeletal system Category: Medical Plan Mr Chaudhry is here in follow-up. He has continued to have weakness of his distal left lower extremity. He also reports numbness of his left foot. The symptoms have not progressed significantly. Still reports that he feels some degree of weakness in his left arm as well. Reports a little more urinary urgency the normal but nothing significantly changed on that side of things. No tingling or numbness in the upper extremities. He is also reporting shortness of breath with activities. Apparently had a cardiac scan and some kind of evaluation of his lungs and was told it was negative. On exam, he has a complete footdrop of the left foot with 0/5 movement in the tibialis, EHL and now also the gastrocnemius. His quadriceps strength is full. Hip flexor on the left possibly slightly weak. Upper extremity strength reveals a mild weakness of his left hand. He has sensory loss of his left foot to light touch but nothing else in the rest of the body. He remains hyperreflexic with Butler's sign bilaterally, toes downgoing both sides. I reviewed his cervical MRI again done at [facility], and the only thing I see is subtle indentation of the anterior aspect of the cord at C3-4 and a left, no cord signal change. I would rate the stenosis as mild to moderate, in agreement with the radiologist's evaluation as well. His thoracic MRI did not reveal any abnormalities. His lumbar MRI done at [facility] last year also did not reveal any significant compression of the nerves. His EMG suggests that it could be a lumbar origin, but without any nerve compression seen on the MRI, there was nothing we could offer him. At this point I am not sure what more we can do for him. I could discuss his cervical stenosis with Dr. Blackmon, but in light of the fact that he does not have any of the classic symptoms and the findings are really not severe, it would be hard to make promises about whether or not surgery would be helpful or meaningful. I think he needs a referral to Neurology to help piece this together. Total amount of time spent in this visit was 20 minutes in discussion of symptoms, cervical, thoracic and lumbar imaging results and subsequent plan of care Westley Blackmon MD,PhD [facility] Orders: Referrals Neurology Referral R29.898 - Other symptoms and signs involving the musculoskeletal system Coding Level of Care Code Est Pt Level 3 (07105) Diagnoses Weakness of left foot R29.898
--- OUTSIDE RECORDS SUMMARY | 2025-10-10 19:34 | XMS_ITS | Encounter Summary ---
Author Organization [facility] Address [address] [facility] [address] [place] [address] Phone Care Team Providers Care Manufacturing Tech Name Role Phone Whitney Campos MD Primary Care Provider Encounter Details Date Type Department Care Team (Late st Contact Info) Description 10/22/2023 Procedure Pass Non-Invasive Cardiology [address] [place] [address] Social History Tobacco Use Types Packs/Day Years Used Date Smoking Tobacco: Some Days Alcohol Use Standard Drinks/Week Comments Yes 0 (1 standard drink = 0.6 oz pur e alcohol) socially, not every day Education Answer Date Recorded Are you interested in more education? Not on rodri e 02/21/2023 Are you concerned about learning? Not on file 02/21/2023 No 02/21/2023 No 02/21/2023 Digital Access Answer Date Recorded No 03/22/2023 No 03/22/2023 No 03/22/2023 Reliable internet access at home? Not on file 03/22/2023 Device with a working camera? Not on file Intimate Partner Violence Answer Date R ecorded Are you denied basic needs s uch as food, clothing, or medical care? No 10/21/2023 In the past 12 months have y ou been in a relationship with a person who hurts, threatens, or tries to control you? No 10/21/2023 Are you denied basic needs s uch as food, clothing, or medical care? No 10/21/2023 In the past 12 months have y ou been in a relationship with a person who hurts, threatens, or tries to control you? No 10/21/2023 Sex and Gender Information Value Date Recorded Sex Assigned at Male 12/20/2019 6:21 PM EST Legal Sex Male 6:11 PM EST Gender Identity Male 12/20/2019 6:21 PM EST Sexual Orientation Straight 12/20/2019 6: 21 PM EST documented as of this encounter Plan of Treatment Not on file documented as of this encounter Visit Diagnoses Not on filedocumented in this encounter Additional Health Concerns Infection Onset Date Last Indicated Resolved Time Influenza A 10/21/2023 10/21/2023 10/28/2023 1:23 AM EST documented as of this encounter Care Teams Manufacturing Tech Relationship Specialty Start Date End Date Whitney Campos MD [address] [place] [address] PCP - General Family Medicine 05/23/22 documented as of this encounter Additional Source Comments The information contained in this document represents components of the legal health record. It is not the complete legal health record.[facility]
--- OUTSIDE RECORDS SUMMARY | 2025-10-10 19:34 | XMS_ITS | Clinical Summary ---
Author Organization [facility] Address [address] [address] Phone Care Team Providers Care Barrel Lathe Operator Name Role Phone Whitney Campos MD Primary Care Provider Allergies No known active allergies Medications atorvastatin (LIPITOR) 80 MG tablet Take 80 mg by mouth daily. 12/05/2022 Active ezetimibe (ZETIA) 10 mg tablet Take 1 tablet by mouth every morning. 10/13/2023 Active nitroglycerin (NITROSTAT) 0.[address] 0.4 mg under the tongue every 5 (five) minutes as needed for chest pain. 02/14/2021 Active carvedilol (COREG) 25 MG tablet Take 25 mg by mouth 2 (two) times a day with meals. 06/14/2022 Active amLODIPine (NORVASC) 10 MG tablet Take 10 mg by mouth every morning. Active aspirin 81 MG EC tablet Take 1 tablet (81 mg total) by mouth daily for 20 days. 20 tablet 10/22/2023 Active Active Problems Problem Noted Date Diagnosed Date TIA (transient ischemic attack) 10/21/2023 Assessment & Plan (10/21/2023 3:43 PM EST): TIA/disorientation -NIH stroke scale 0, CT of the head and neck revealed no acute intracranial findings however did find some vessel disease. 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 Outpatient follow up with neurology. Influenza A 10/21/2023 Assessment & Plan (10/21/2023 3:38 PM EST): Influenza A -No oxygen requirements at this time, has symptoms of a cough, however no shortness of breath Plan: Check CXR Start Tamiflu Social History Tobacco Use Types Packs/Day Years [...] Orientation Straight 12/20/2019 6: 21 PM EST Last Filed Vital Signs Vital Sign Reading Time Taken Comments Blood Pressure 146/79 10/22/2023 12:14 PM EST Pulse 60 10/22/2023 12:14 PM EST Temperature 36.4 C (97.5 F) 10/22/2023 12:14 PM EST Respiratory Rate 16 10/22/2023 12:14 PM EST Oxygen Saturation 98% 10/22/2023 12:14 PM EST Inhaled Oxygen Concentration - - Weight 114.3 kg (252 lb) 10/21/2023 12:19 PM EST Height 188 cm (6' 2 ) 10/21/2023 12:19 PM EST Body Mass Index 32.35 10/21/2023 12:19 PM EST Plan of Treatment Health Maintenance Due Date Last Done Comments Adult Td,Tdap Booster 1962 DEPRESSION SCREENING 1974 SMOKING Hx and SMOKELESS TOBACCO SCREENING 1975 HEPATITIS C SCREENING 1980 HIV ONE-TIME SCREENING (18-6 5 YEARS) 1980 PNEUMOCOCCAL VACCINES (50+ years) (1 of 2 - PCV) 1981 COLOGUARD 2007 COLONOSCOPY 2007 COLORECTAL CANCER SCREENING 2007 FIT TEST 2007 FOBT 2007 SIGMOIDOSCOPY 2007 VIRTUAL COLONOSCOPY 2007 ZOSTER VACCINES (1 of 2) 2012 INFLUENZA VACCINE (#1) 2025 COVID-19 VACCINE (2 - 2024-2 6 season) 2025 02/08/2021 SCREENING FOR DIABETES 10/22/2026 3, 10/21/2023 LIPID PANEL 10/22/2028 10/22/2023, 10/21/2023 RSV VACCINE (1 - 1-dose 75+ series) 2037 HEPATITIS A VACCINES Aged Out No long er eligible based on patient's age to complete this topic HIB VACCINES Aged Out No longer eligi ble based on patient's age to complete this topic MENINGOCOCCAL VACCINES (ACWY) Aged Out No longer eligible based on patient's age to complete this topic MENINGOCOCCAL VACCINES (B) Aged Out N o longer eligible based on patient's age to complete this topic Medical Devices Not on file Procedures Procedure Name Priority Date/Time Associated Diagnosis Comments LIPID PANEL Routine 10/22/2023 6:06 AM EST from Last 3 Months or Most Recently Relevant to Health Maintenance Results * (ABNORMAL) Lipid panel (10/22/2023 6:06 AM EST) HDL 37 mg/dL [facility] Comment: Interpretation <40 mg/dL: Low HDL cholesterol (major risk factor for CHD) Greater than or equal to 60 mg/dL: High HDL cholesterol ( negative risk factor for CHD) HDL - cholesterol is affected by a number of factors, e.g. smoking, excerise, hormones, sex and age. CHOLESTEROL 101 0 - 240 mg/dL [facility] TRIGLYCERIDES 169(H) 30 - 160 mg/dL [facility] LDL 30(L) 50 - 129 mg/dL [facility] Comment: LDL levels in terms of risk for coronary heart disease: <100 mg/dL: Optimal 100-129 mg/dL: Near or above optimal 130-159 mg/dL: Borderline high 160-189 mg/dL: High >190 mg/dL: Very High CARDIAC RISK RATIO 2.7(L) 3.4 - 5.0 [facility] Blood 10/22/2023 6:06 AM EST 10/22/2023 6:18 AM EST us Ambrosio Fuller DO LAB BLOOD BKR ORDERABLES Final Result [facility] [address] [place] [address] from Last 3 Months or Most Recently Relevant to Health Maintenance Insurance [address] [address] Care Teams Barrel Lathe Operator Relationship Specialty Start Date End Date Whitney Campos MD [address] [place] [address] PCP - General Family Medicine 05/23/22 Additional Source Comments The information contained in this document represents components of the legal health record. It is not the complete legal health record.[facility]
--- OUTSIDE RECORDS SUMMARY | 2025-10-10 19:34 | XMS_ITS | Encounter Summary ---
Author Organization [facility] Address [address] [employer] [facility] [address] [place] [phone] Phone Care Team Providers Care Type Photography Supervisor Name Role Phone Whitney Campos MD Primary Care Provider Encounter Details Date Type Department Care Team (Late st Contact Info) Description 10/21/2023 Procedure Pass [facility], [address] [address] Social History Tobacco Use Types Packs/Day Years [...] PM EST documented as of this encounter Functional Status * Calculated C-SSRS Risk Score (Lifetime/Recent) Answer Date of Assessment Author No Risk Indicated 10/21/2023 12:52 PM EST Casey Hunter RN * [place] Suicide Severity Rating Scale (Screener/Recent Self-Report) Question Answer Date of Assessment Author 1. Wish to be (Past 1 Month) No 10/21/2023 12:52 PM EST Staci Aceves RN 2. Non-Specific Active Suici mariaelena Thoughts (Past 1 Month) No 10/21/2023 12:52 PM EST Fany Aceves RN 6. Suicidal Behavior (Lifetime) No 12:52 PM EST Casey Aceves RN documented as of this encounter Plan of Treatment Not on file documented as of this encounter Visit Diagnoses Not on filedocumented in this encounter Additional Health Concerns Infection Onset Date Last Indicated Resolved Time CoV-Risk 10/21/2023 10/21/2023 10/21/2023 5:01 PM EST Influenza A 10/21/2023 10/21/2023 10/28/2023 1:23 AM EST documented as of this encounter Care Teams Type Photography Supervisor Relationship Specialty Start Date End Date Whitney Campos MD [address] [place] [address] PCP - General Family Medicine 05/23/22 documented as of this encounter Additional Source Comments The information contained in this document represents components of the legal health record. It is not the complete legal health record.[facility]
--- OUTSIDE RECORDS SUMMARY | 2025-10-10 19:34 | XMS_ITS | Clinical Summary ---
Author Organization [address] [place] [address] Address [address] [place] [address] Phone Care Team Providers Care Dredge Pumper Name Role Phone Melanie Sanches MD Primary Care Provider [phone] Allergies No known active allergies Medications amLODIPine (NORVASC) 10 mg tablet Take 1 tablet (10 mg total) by mouth 1 (one) time each day. Taking 10mg once daily Active aspirin 81 mg EC tablet Take 1 tablet (81 mg total) by mouth 1 (one) time each day. Active atorvastatin (LIPITOR) 80 mg tablet Take 1 tablet (80 mg total) by mouth 1 (one) time each day. Active isosorbide mononitrate (IMDUR) 30 mg 24 hr tablet TAKE 1 TABLET BY MOUTH EVERY DAY 90 tablet 1 5 Active furosemide (LASIX) 20 mg tablet Take 1 tablet (20 mg total) by mouth 1 (one) time each day after breakfast. 30 each 5 Active carvediloL (COREG) 25 mg tablet TAKE 1 AND 1/2 TABLETS BY MOUTH TWICE A DAY WITH MEALS 270 tablet 5 Active carvediloL (COREG) 25 mg tablet TAKE 1 AND 1/2 TABLETS BY MOUTH TWICE A DAY WITH MEALS 270 tablet 5 025 Discontinued Hospital, Clinic, or Other Facility Administered Medication Ordered Dose Route Frequency Start Date End Date Status TC-99M tetrofosmin P radio-isotope injection 10.7 millicurie 10.7 millicurie IV Once in imaging 10/04/2025 10/04/2025 Ende d regadenoson (LEXISCAN) injection 0.4 mg 0.4 mg IV Once in imaging 10/04/2025 10/04/2025 End ed TC-99M tetrofosmin P radio-isotope injection 32.5 millicurie 32.5 millicurie IV Once in imaging 10/04/2025 10/04/2025 Ende d Active Problems Problem Noted Date Diagnosed Date Cervical stenosis of spine 10/04/2025 Degenerative cervical spinal stenosis 10/04/2025 Foot drop, left 10/04/2025 Swelling of left foot 10/04/2025 Pure hypercholesterolemia 10/04/2025 Prediabetes 10/04/2025 Gout 10/04/2025 Myocarditis 07/17/2025 COVID-19 07/17/2025 Hyperlipidemia 08/07/2024 Transient ischemic attack 10/21/2023 Overview (10/04/2025): Outside Source Comment: Last Assessment & Plan: TIA/disorientation -NIH stroke scale 0, CT of the head and neck revealed no acute intracranial findings however did find some vessel disease. -CTA revealed: multifocal stenosis of the intracranial arteries without occlusion, notably severe at right vertebral and moderate at right proximal DUCT INSTALLER, 1 mm focus of enhancement at the [...] Smoking cessation. Outpatient follow up with neurology. TIA (transient ischemic attack) 10/21/2023 Influenza A 10/21/2023 Dysrhythmia 06/03/2022 Hypotension 06/03/2022 Orthostatic hypotension 06/03/2022 NSTEMI (non-ST elevated myocardial infarction) 0 06/03/2022 Palpitations 06/03/2022 Vasovagal episode 06/03/2022 Coronary artery disease 02/13/2021 Hypertensive disorder 01/15/2021 Obesity 01/15/2021 Encounters Date Type Department Care Team Description 10/04/2025 7:30 AM EST Ancillary Procedure [facility] Cardiology [facility] [address] [place] [address] Coronary artery disease of [place] artery of [place] heart with stable angina pectoris ([facility] V24) 09/27/2025 Telephone [facility] Cardiology [facility] [address] [facility] [address] [place] [address] Shefali Heller NP 07/17/2025 2:56 AM EDT - 07/20/2025 12:16 PM EDT Hospital Encounter [facility] [address] [place] [id number] Yolanda Vasquez MD Ishtiaq, Rizwan, MD Bukalo, Nermina, MD Zipagan, Kurt Schroeder MD COVID-19 (Primary Dx); Myocarditis due to COVID-19 virus; NSTEMI (non-ST elevated myocardial infarction) (CMS/HCC V24, CMS/HCC V28); Shortness of breath; Lower extremity edema; Acute viral myocarditis; Chronic myocarditis, unspecified myocarditis type (CMS/[facility] V24, CMS/[facility] V28) Discharge Disposition: Home or Self Care from Last 3 Months Medical History Medical History Date Comments Gout [...] drink = 0.6 oz pur e alcohol) Interpersonal Safety Answer Date Record ed Physical Abuse Unrecognized value 07/17/2025 Verbal Abuse Unrecognized value 07/17/2025 Sex and Gender Information Value Date Recorded Sex Assigned at Not on file Legal Sex Male 6:24 AM EST Gender Identity Not on file Sexual Orientation Not on file Last Filed Vital Signs Vital Sign Reading Time Taken Comments Blood Pressure 131/93 10/04/2025 7:52 AM EST Pulse 60 07/20/2025 7:17 AM EDT Temperature 36.3 C (97.3 F) 07/20/2025 7:17 AM EDT Respiratory Rate 18 07/20/2025 7:17 AM EDT Oxygen Saturation 95% 07/20/2025 7:17 AM EDT Inhaled Oxygen Concentration - - Weight 109 kg (240 lb) 10/04/2025 7:40 AM EST Height 188 cm (6' 2 ) 10/04/2025 7:40 AM EST Body Mass Index 30.81 10/04/2025 7:40 AM EST Plan of Treatment Upcoming Encounters Date Type Department Care Team (Late st Contact Info) Description 11/08/2025 10:40 AM EST Office Visit [facility] [address] [facility] [address] [place] [phone] Kevon Mahoney MD [address] [place] [phone] Health Maintenance Due Date Last Done Comments Pneumococcal Vaccine: 50+ Years (1 of 2 - PCV) 1981 Zoster Vaccines (1 of 2) 2012 HIV Screening 10/05/2022 Hepatitis C Screening 10/05/2022 Social Influencers of Health Screening 10/05/2022 Depression Screening 10/27/2024 COVID-19 Vaccine ( season) 2025 08/18/2023, 02/07/2022, 09/17/2021, Additional history exists Hypertension/CHF/CAD Annual BMP Blood Test 07/19/2026 07/19/2025, 07/18/2025, 07/17/2025, Additional history exists Colorectal Cancer Screening: FIT-DNA (Cologuard) 08/27/2027 08/27/2024, 08/27/2024 Cholesterol Screening (Lipid Panel) 10/22/2028 10/22/2023, 10/22/2023 DTaP,Tdap,and Td Vaccines (2 - Td or Tdap) 03/29/2034 03/29/2024 RSV Immunization Adult Patients (1 - 1-dose 75+ series) 2037 Influenza Vaccine Completed 09/28/2025, 08/18/2023 HIB Vaccines Aged Out No longer eligi [...] age to complete this topic Meningococcal B Vaccine Aged Out No l onger eligible based on patient's age to complete this topic RSV Immunization Patients Under 20 months Aged Out No longer eligible based on patient's age to complete this topic Varicella Vaccines Aged Out No longer eligible based on patient's age to complete this topic Procedures Procedure Name Priority Date/Time Associated Diagnosis Comments NM LEXISCAN STRESS TEST W/ MYOCARDIAL PERFUSION Routine 10/04/2025 10:18 AM EST Coronary artery disease of [place] artery of [place] heart with stable angina pectoris (CMS/HCC V24) ECG ANNOTATED 07/21/2025 HEPARIN AND LOW MOLECULAR WEIGHT ANTI XA LEVEL Routine 07/19/2025 7:40 AM EDT CBC WITH AUTO DIFFERENTIAL Routine 07/19/2025 6:46 AM EDT MAGNESIUM Routine 07/19/2025 6:46 AM EDT BASIC METABOLIC PANEL Routine 07/19/2025 6:46 AM EDT CBC AND DIFFERENTIAL Routine 07/19/2025 6:46 AM EDT CBC WITH AUTO DIFFERENTIAL Routine 07/18/2025 6:39 AM EDT HEPARIN AND LOW MOLECULAR WEIGHT ANTI XA LEVEL Routine 07/18/2025 6:39 AM EDT COMPREHENSIVE METABOLIC PANEL Routine 07/18/2025 6:39 AM EDT CBC AND DIFFERENTIAL Routine 07/18/2025 6:39 AM EDT HEPARIN AND LOW MOLECULAR WEIGHT ANTI XA LEVEL Timed 07/17/2025 6:09 PM EDT HEPARIN AND LOW MOLECULAR WEIGHT ANTI XA LEVEL Timed 07/17/2025 11:22 AM EDT TRANSTHORACIC ECHOCARDIOGRAM (TTE) COMPLETE W/ CONTRAST Routine 07/17/2025 10:40 AM EDT Acute viral myocarditis TROPONIN I HIGH SENSITIVITY Routine 07/17/2025 10:34 AM EDT ECG 12-LEAD STAT 07/17/2025 8:24 AM EDT HEPARIN AND LOW MOLECULAR WEIGHT ANTI XA LEVEL STAT 07/17/2025 6:19 AM EDT ACTIVATED PARTIAL THROMBOPLASTIN TIME STAT 07/17/2025 6:19 AM EDT PROTHROMBIN TIME WITH INR STAT 07/17/2025 6:19 AM EDT TROPONIN I HIGH SENSITIVITY Timed 07/17/2025 5:07 AM EDT B-TYPE NATRIURETIC PEPTIDE STAT 07/17/2025 4:08 AM EDT TROPONIN I HIGH SENSITIVITY Timed 07/17/2025 4:08 AM EDT RESPIRATORY VIRUS PANEL MOLECULAR STUDY STAT 07/17/2025 4:08 AM EDT XR CHEST 2 VIEWS STAT 07/17/2025 3:30 AM EDT HEPATIC FUNCTION PANEL STAT Add-on 3:12 AM EDT MAGNESIUM STAT Add-on 07/17/2025 3:12 AM EDT CBC WITH AUTO DIFFERENTIAL STAT 07/17/2025 3:12 AM EDT BASIC METABOLIC PANEL STAT 07/17/2025 3:12 AM EDT CBC AND DIFFERENTIAL STAT 07/17/2025 3:12 AM EDT ECG 12-LEAD STAT 07/17/2025 3:07 AM EDT LIPID PANEL Routine 10/22/2023 from Last 3 Months or Most Recently Relevant to Health Maintenance Results * NM LEXISCAN STRESS TEST W/ MYOCARDIAL PERFUSION (10/04/2025 10:18 AM EST) Exercise/injec tion duration (min) 0 CV PACS STRESS Exercise/injec tion duration (sec) 42 CV PACS STRESS Peak SBP 110 mmHg CV PACS STRESS Peak DBP 80 mmHg CV PACS STRESS Peak HR 99 bpm CV PACS STRESS Baseline HR 76 bpm CV PACS STRESS Baseline SBP 131 mmHg CV PACS STRESS Baseline DBP 93 mmHg CV PACS STRESS Estimated workload 1.0 METS CV PACS STRESS Percent HR 63 % CV PACS STRESS Rate Pressure Product 10,890.0 mmHg*bpm CV PACS STRESS Target HR 134 bpm CV PACS STRESS Max HR Percent 62 % CV PA CS STRESS TID 1.08 CV PACS STRESS Nuc Stress EF 60 % CV PAC S STRESS Nuc Rest EF 73 % CV PACS STRESS BSA 2.38 m2 CV PACS STRESS Anatomical Region Laterality Modality Nuclear Medicine 10/04/2025 7:5 2 AM EST 10/04/2025 8:46 AM EST Narrative 10/04/2025 4:25 PM EST Normal regadenoson nuclear perfusion stress test. No perfusion defect to suggest ischemia or infarct. Normal left ventricular function post-stress. Stress ejection fraction is 60%. No transient ischemic left ventricular dilation. Stress Findings A pharmacological stress test was performed using regadenoson, 0.4 mg IV over 10-15 seconds, followed by radiopharmacological injection 10 seconds post infusion. Total stress time was 0 min and 42 sec. The patient reached the end of the protocol. Blood pressure demonstrated a hypotensive response. Heart rate demonstrated a normal response. The patient reported dyspnea during the stress test which resolved in recovery. ECG 64 year old male with a history of coronary artery disease status post stent to the mid LAD in 2020, hypertension, hyperlipidemia who presents after recent hospitalization for stress testing. The ECG shows normal sinus rhythm. There were no arrhythmias during stress. There is no significant ST abnormalities during stress. There were no arrhythmias during recovery. The result of the stress ECG was negative for ischemia. Nuclear Study Quality Study technique: MPI, SPECT, multi, rest and stress, 1 day and gated. Overall image quality is good. Motion corrected both stress and rest.CT attenuation correction was utilized. No radiopharmaceutical dose was extravasated. Perfusion Defect Conclusion There is no evidence of transient ischemic dilation (TID). Stress Function Comments Left ventricular systolic function post-stress is normal. Stress ejection fraction is 60%. The stress end diastolic cavity size is normal. Rest Function Comments Left ventricular function at rest was normal. Resting ejection fraction was 73%. The rest end diastolic cavity size is normal. CT Findings Severe LAD calcification is noted. Perfusion Comments LV perfusion is normal. With no CT correction, there is a fixed inferior wall defect, worse with resting images. With CT correction, inferior wall defect is normalized. There is no other perfusion defect. Shefali Heller NP CV STRESS PROCEDURES Final Result * ECG-Annotated (07/21/2025) us Provider Onbase MD ECG ORDERABLES Final Result * Heparin and low molecular weight anti Xa level (07/19/2025 7:40 AM EDT) Only the most recent of5 resultswithin the time period is included. [facility] Heparin Anti-Xa 0.38 0.30 - 0.70 I Unit/mL LAB COAGULATION METHOD 07/19/2025 8:10 AM EDT [facility] Blood Venous blood specimen / Unknown Venipuncture / Unknown 07/19/2025 7:40 AM EDT 07/19/2025 7:50 AM EDT Narrative [facility] - 07/19/2025 8:10 AM EDT Therapeutic range listed is for Unfractionated Heparin. LMW Heparin therapeutic range: 0.50-1.20 IU/mL us Kurt Leyva MD LAB BLOOD ORDERABLES Final Re sult [facility] [address] [place] [address], [place] [phone] * (ABNORMAL) CBC auto differential (07/19/2025 6:46 AM EDT) Only the most recent of3 resultswithin the time period is included. [facility] WBC 6.1 4.8 - 10.8 K/mcL LAB HEMETOLOGY METHOD 07/19/2025 8:11 AM EDT [facility] RBC 4.30(L) 4.50 - 5.50 M/mcL LAB HEMETOLOGY METHOD 07/19/2025 8:11 AM EDT [facility] Hemoglobin 13.0(L) 13.5 - 17.5 g/dL LAB HEMETOLOGY METHOD 07/19/2025 8:11 AM EDT [facility] Hematocrit 40.3(L) 42.0 - 54.0 % LAB HEMETOLOGY METHOD 07/19/2025 8:11 AM EDT [facility] MCV 94.8 79.0 - 98.0 FL LAB HEMETOLOGY METHOD 07/19/2025 8:11 AM [facility] MCH 30.6 27.0 - 32.0 pcg LAB HEMETOLOGY METHOD 07/19/2025 8:11 AM [facility] MCHC 32.3 32.0 - 37.0 g/dL LAB HEMETOLOGY METHOD 07/19/2025 8:11 AM [facility] RDW 12.3 11.0 - 15.0 % LAB HEMETOLOGY METHOD 07/19/2025 8:11 AM [facility] Platelets 203 130 - 400 K/mcL LAB HEMETOLOGY METHOD 07/19/2025 8:11 AM [facility] MPV 10.1 7.0 - 11.0 FL LAB HEMETOLOGY METHOD 07/19/2025 8:11 AM [facility] NRBC 0.0 <1.0 % LAB HEMETOLOGY METHOD 07/19/2025 8:11 AM [facility] NRBC Absolute 0.00 <0.10 K/mcL LAB HEMETOLOGY METHOD 07/19/2025 8:11 AM [facility] Neutrophils Relative 52.3 % LAB HEMETOLOGY METHOD 07/19/2025 8:11 AM [facility] Lymphocytes Relative 24.3 % LAB HEMETOLOGY METHOD 07/19/2025 8:11 AM [facility] Monocytes Relative 16.6 % LAB HEMETOLOGY METHOD 07/19/2025 8:11 AM [facility] Eosinophils Relative 5.7 % LAB HEMETOLOGY METHOD 07/19/2025 8:11 AM [facility] Basophils Relative 0.8 % LAB HEMETOLOGY METHOD 07/19/2025 8:11 AM [facility] Immature Granulocytes Relative 0.3 % LAB HEMETOLOGY METHOD 07/19/2025 8:11 AM EDT [facility] Neutrophils Absolute 3.21 1.50 - 7.00 K/mcL LAB HEMETOLOGY METHOD 07/19/2025 8:11 AM EDT [facility] Lymphocytes Absolute 1.49 1.00 - 5.00 K/[facility] LAB HEMETOLOGY METHOD 07/19/2025 8:11 AM EDT [facility] Monocytes Absolute 1.02(H) 0.20 - 1.00 K/mcL LAB HEMETOLOGY METHOD 07/19/2025 8:11 AM EDT [facility] Eosinophils Absolute 0.35 0.00 - 0.50 K/[facility] LAB HEMETOLOGY METHOD 07/19/2025 8:11 AM EDT [facility] Basophils Absolute 0.05 0.00 - 0.20 K/mcL LAB HEMETOLOGY METHOD 07/19/2025 8:11 AM EDT [facility] Immature Granulocytes Absolute 0.02 0.00 - 0.03 K/[facility] LAB HEMETOLOGY METHOD 07/19/2025 8:11 AM EDT [facility] Blood Venous blood specimen / Unknown Venipuncture / Unknown 07/19/2025 6:46 AM EDT 07/19/2025 7:50 AM EDT us Kathy Valdez NP LAB BLOOD ORDERABLES Final Resul t [facility] [address] [place] [address], * Magnesium (07/19/2025 6:46 AM EDT) Only the most recent of2 resultswithin the time period is included. Magnesium 2.3 1.9 - 2.6 mg/dL LAB CHEMISTRY METHOD 07/19/2025 8:29 AM EDT [facility] Blood Venous blood specimen / Unknown Venipuncture / Unknown 07/19/2025 6:46 AM EDT 07/19/2025 7:50 AM EDT us Kathy Valdez NP LAB BLOOD ORDERABLES Final Resul t [facility] [address] [place] [address], * Basic metabolic panel (07/19/2025 6:46 AM EDT) Only the most recent of2 resultswithin the time period is included. Sodium 139 133 - 145 mmol/L LAB CHEMISTRY METHOD 07/19/2025 8:29 AM [facility] Potassium 4.7 3.5 - 5.5 mmol/L LAB CHEMISTRY METHOD 07/19/2025 8:29 AM [facility] Chloride 105 96 - 110 mmol/L LAB CHEMISTRY METHOD 07/19/2025 8:29 AM [facility] CO2 30 21 - 32 mmol/L LAB CHEMISTRY METHOD 07/19/2025 8:29 AM [facility] Anion Gap 4 3 - 11 LAB CHEMISTRY METHOD 07/19/2025 8:29 AM [facility] Glucose 100 70 - 100 mg/dL LAB CHEMISTRY METHOD 07/19/2025 8:29 AM [facility] BUN 19 5 - 25 mg/dL LAB CHEMISTRY METHOD 07/19/2025 8:29 AM [facility] Creatinine 0.95 0.70 - 1.30 mg/dL LAB CHEMISTRY METHOD 07/19/2025 8:29 AM [facility] eGFR 90 >=60 mL/min/1. 73m2 LAB CHEMISTRY METHOD 07/19/2025 8:29 AM [facility] Comment:Calculation based on the Chronic Kidney Disease Epidemiology Collaboration (CKD-EPI) equation refit without adjustment for race. BUN/Creatinine Ratio 20.0 LAB CHEMISTRY METHOD 07/19/2025 8:29 AM [facility] Calcium 9.1 8.5 - 10.5 mg/dL LAB CHEMISTRY METHOD 07/19/2025 8:29 AM [facility] Blood Venous blood specimen / Unknown Venipuncture / Unknown 07/19/2025 6:46 AM EDT 07/19/2025 7:50 AM EDT us Kathy Valdez NP LAB BLOOD ORDERABLES Final Resul t [facility] [address] [place] [address], [place] [phone] * Comprehensive metabolic panel (07/18/2025 6:39 AM EDT) Sodium 139 133 - 145 mmol/L LAB CHEMISTRY METHOD 07/18/2025 7:37 AM [facility] Potassium 3.9 3.5 - 5.5 mmol/L LAB CHEMISTRY METHOD 07/18/2025 7:37 AM [facility] Chloride 104 96 - 110 mmol/L LAB CHEMISTRY METHOD 07/18/2025 7:37 AM [facility] CO2 28 21 - 32 mmol/L LAB CHEMISTRY METHOD 07/18/2025 7:37 AM [facility] Anion Gap 7 3 - 11 LAB CHEMISTRY METHOD 07/18/2025 7:37 AM [facility] Glucose 97 70 - 100 mg/dL LAB CHEMISTRY METHOD 07/18/2025 7:37 AM [facility] BUN 17 5 - 25 mg/dL LAB CHEMISTRY METHOD 07/18/2025 7:37 AM [facility] Creatinine 0.91 0.70 - 1.30 mg/dL LAB CHEMISTRY METHOD 07/18/2025 7:37 AM [facility] eGFR 95 >=60 mL/min/1. 73m2 LAB CHEMISTRY METHOD 07/18/2025 7:37 AM [facility] Comment:Calculation based on the Chronic Kidney Disease Epidemiology Collaboration (CKD-EPI) equation refit without adjustment for race. BUN/Creatinine Ratio 18.7 LAB CHEMISTRY METHOD 07/18/2025 7:37 AM [facility] Calcium 9.0 8.5 - 10.5 mg/dL LAB CHEMISTRY METHOD 07/18/2025 7:37 AM [facility] AST (SGOT) 37 10 - 42 unit/L LAB CHEMISTRY METHOD 07/18/2025 7:37 AM [facility] ALT (SGPT) 50 10 - 60 unit/L LAB CHEMISTRY METHOD 07/18/2025 7:37 AM [facility] Alkaline Phosphatase 61 42 - 121 unit/L LAB CHEMISTRY METHOD 07/18/2025 7:37 AM [facility] Total Protein 6.2 6.0 - 8.0 g/dL LAB CHEMISTRY METHOD 07/18/2025 7:37 AM [facility] Albumin 3.6 3.2 - 5.0 g/dL LAB CHEMISTRY METHOD 07/18/2025 7:37 AM [facility] Total Bilirubin 0.8 0.0 - 1.4 mg/dL LAB CHEMISTRY METHOD 07/18/2025 7:37 AM [facility] Blood Venous blood specimen / Unknown Venipuncture / Unknown 07/18/2025 6:39 AM EDT 07/18/2025 6:58 AM EDT us Tina Borrero SILVERER LAB BLOOD ORDERABLES Fin al Result [facility] [address] [place] [address], [place] [phone] * (ABNORMAL) TRANSTHORACIC ECHOCARDIOGRAM (TTE) COMPLETE W/ CONTRAST (07/17/2025 10:40 AM EDT) Left Atrium Minor [place] 5.9 cm CV PACS Left Atrium Major [place] 5.7 cm CV PACS LA Area Sys (A2C) 18 cm2 CV PACS LA Area Sys (A4C) 19 cm2 CV PACS LA Volume (BP) 49 mL CV PACS RA Area 18.0 cm2 CV PACS RA 2D Volume 43 mL CV PACS AV Mean Gradient 5 mmHg CV PACS Ao VTI 33.0 cm CV PACS AV Peak Lazaro 1.6 m/s CV PACS AV Peak Gradient 10 mmHg CV PACS AV Area Continuity Equation 3.2 cm2 CV PACS AV Area Peak Velocity 3.4 cm2 CV PACS Ascending Aorta 4.4 cm CV PACS Aortic Sinus Valsalva 4.0 cm CV PACS IVC Proximal 1.5 cm CV PACS IVSD 1.2(A) 0.6 - 1.0 cm CV PACS LVIDD 4.5 4.2 - 5.8 cm CV PACS LVIDS 3.1 2.5 - 4.0 cm CV PACS LVOT Diameter 2.2 cm CV PACS LVOT Mean Lazaro 1.0 m/s CV PACS LVOT Mean Grad 5 mmHg CV PACS LVOT Peak VTI 27.6 cm CV PACS LVOT Peak Lazaro 1.4 m/s CV PACS LVOT Peak Gradient 8 mmHg CV PACS LVPWD 1.2(A) 0.6 - 1.0 cm CV PACS MV E' Tissue Velocity Lateral 10 cm/s CV PACS MV E' Tissue Velocity Septal 7 cm/s CV PACS LVOT Area 3.8 cm2 CV PACS LVOT Stroke Volume 105 mL CV PACS MV Deceleration [place] 2.9 m/s2 CV PACS E Wave Deceleration Time 286(A) 119 - 242 ms CV PACS MV PHT 84 ms CV PACS MV Peak A Lazaro 0.89 m/s CV PACS MV Peak E Lazaro 0.82 m/s CV PACS MV Area PHT 2.6 cm2 CV PACS PV Acceleration Time 137 ms CV PACS PV Acceleration Time 137 ms CV PACS RV Diastolic Basal Dimension 3.5 2.5 - 4.1 cm CV PACS RV S' 15 cm/s CV PACS TAPSE 24 mm CV PACS TR Peak Velocity 1.89 m/s CV PACS TR Peak Gradient 14 mmHg CV PACS E/E' Ratio Septal 12 CV PACS E/E' Ratio Averaged 10 CV PACS LVOT Stroke Index 44 mL/m2 CV PACS Relative Wall Thickness ratio 0.53 CV PACS LVOT:AV VTI Index 0.84 CV PACS FS 31 % CV PACS LV Mass 2D 198 g CV PACS Ascending Aorta Index 1.83 cm/m2 CV PACS LVOT flow 380 mL/s CV PACS RA 2D Volume Index 18 mL/m2 CV PACS EARL Index (VTI) 1.32 cm2/m2 CV PACS EARL Index (Pk Lazaro) 1.42 cm2/m2 CV PACS LVIDD Index 1.88 cm/m2 CV PACS LVIDS Index 1.29 cm/m2 CV PACS AV Velocity Ratio 0.88 CV PACS E/A Ratio 0.9 CV PACS E/E' Ratio Lateral 8 CV PACS LA Volume Index (BP) 20 mL/m2 CV PACS LV Mass Index 2D 83 g/m2 CV PACS BSA 2.44 m2 CV PACS Right Ventricular Peak Systolic Pressure 17 mmHg CV PACS Est. RA Pressure 3 mmHg CV PACS Anatomical Region Laterality Modality Ultrasound Narrative 07/18/2025 9:37 AM EDT Left ventricle cavity size is normal. There is mild, concentric left ventricular hypertrophy. There is normal left ventricular regional wall motion. Left ventricular systolic function is in the normal range with an ejection fraction of 60-65%. Right ventricle cavity is normal. Right ventricular systolic function is normal. The ascending aorta is dilated (4.4 cm) for age and body surface area. There is no hemodynamically significant valve disease. There is normal pulmonary artery systolic pressure. Left Ventricle Left ventricle cavity size is normal. There is mild concentric hypertrophy. Systolic function is normal with an ejection fraction of 60-65%. There are no regional LV wall motion abnormalities. Indeterminate diastolic function. Left atrial pressure is inconclusive. Right Ventricle Right ventricle cavity appears normal. Systolic function is normal. Left Atrium Left atrium cavity size is normal. Right Atrium Right atrium cavity is normal. IVC/SVC RA pressures is estimated to be 3 mmHg (IVC diameter <21 mm and decreases >50% during inspiration). Mitral Valve The leaflets are mildly thickened. There is annular calcification. There is trace regurgitation. There is no evidence of mitral valve stenosis. Tricuspid Valve Tricuspid valve structure is normal. There is trace regurgitation. There is no evidence of tricuspid valve stenosis. The right ventricular systolic pressure is normal. The RVSP is estimated at 17 mmHg. Aortic Valve The aortic valve is trileaflet. Thickened aortic valve leaflets. There is no regurgitation or stenosis. Pulmonic Valve Pulmonic valve structure is normal. No significant pulmonic valve regurgitation. There is no evidence of pulmonic valve stenosis. Ascending Aorta The ascending aorta is dilated (4.4 cm). The aortic root is likely upper normal for age and body surface area. Pericardium There is an anterior fat pad. There is no pericardial effusion. Study Details Overall the study quality was suboptimal. Definity contrast was given to enhance imaging. us Ya Slaughter MD CV ECHO PROCEDURES Final Resul t * (ABNORMAL) Troponin I high sensitivity (07/17/2025 10:34 AM EDT) Only the most recent of3 resultswithin the time period is included. High Sensitivity Troponin I 126(HH) <=79 ng/L LAB CHEMISTRY METHOD 07/17/2025 11:13 AM EDT [facility] Blood Venous blood specimen / Unknown Venipuncture / Unknown 07/17/2025 10:34 AM EDT 07/17/2025 10:38 AM EDT Narrative [facility] - 07/17/2025 11:13 AM EDT High levels of biotin in samples may falsely decrease hsTroponin values. Use caution when interpreting hsTroponin results in patients taking biotin who exhibit renal impairment (eGFR <60) or in patients taking more than 20 mg/day of biotin. us Tina Borrero NP LAB BLOOD ORDERABLES Fin al Result [facility] [address] [place] [address], [place] [phone] * ECG 12 lead (07/17/2025 8:24 AM EDT) Only the most recent of2 resultswithin the time period is included. Ventricular Rate ECG 62 BPM GEMUSE Atrial Rate 62 BPM GEMUSE P-R Interval 208 ms GEMUSE QRS Duration 76 ms GEMUSE Q-T Interval 384 ms GEMUSE QTc 389 ms GEMUSE P Wave [place] 43 degrees GEMUSE R [place] 3 degrees GEMUSE T [place] 19 degrees GEMUSE ECG Interpretation Normal sinus rhythm Normal ECG When compared with ECG of 17-JUL-2025 03:07, (unconfirmed) No significant change was found Confirmed by JOSESITO BLUE ([id number]) on 07/18/2025 1:52:09 PM GEMUSE 07/17/2025 8:24 AM EDT 07/18/2025 1:52 PM EDT Ya Slaughter MD ECG ORDERABLES Final Result GEMUSE * Activated Partial Thromboplastin Time - STAT (07/17/2025 6:19 AM EDT) Pathologist [facility] aPTT 28.2 24.1 - 39.3 sec LAB COAGULATION METHOD 07/17/2025 7:17 AM EDT [facility] Blood Venous blood specimen / Unknown Venipuncture / Unknown 07/17/2025 6:19 AM EDT 07/17/2025 6:55 AM EDT Yolanda Vasquez MD LAB BLOOD ORDERABLES Final Res ult [facility] [address] [place] [address], [place] [phone] * Prothrombin Time with INR - STAT (07/17/2025 6:19 AM EDT) Pathologist [facility] Protime 12.2 10.6 - 13.9 sec LAB COAGULATION METHOD 07/17/2025 7:17 AM EDT [facility] INR 1.0 LAB COAGULATION METHOD 07/17/2025 7:17 AM EDT [facility] Blood Venous blood specimen / Unknown Venipuncture / Unknown 07/17/2025 6:19 AM EDT 07/17/2025 6:55 AM EDT us Yolanda Vasquez MD LAB BLOOD ORDERABLES Final Res ult [facility] [address] [place] [address], [place] [phone] * (ABNORMAL) Respiratory virus panel molecular study (07/17/2025 4:08 AM EDT) Adenovirus Detection by PCR Not Detected Not Detected LAB MICROBIOLOGY METHOD 07/17/2025 5:18 AM EDT [facility] Influenza A PCR Not Detected Not Detected LAB MICROBIOLOGY METHOD 07/17/2025 5:18 AM EDT [facility] Influenza B PCR Not Detected Not Detected LAB MICROBIOLOGY METHOD 07/17/2025 5:18 AM EDT [facility] Coronavirus 229E Not Detected Not Detected LAB MICROBIOLOGY METHOD 07/17/2025 5:18 AM EDT [facility] Coronavirus HKU1 Not Detected Not Detected LAB MICROBIOLOGY METHOD 07/17/2025 5:18 AM EDT [facility] Coronavirus OC43 Not Detected Not Detected LAB MICROBIOLOGY METHOD 07/17/2025 5:18 AM EDT [facility] Coronavirus NL63 Not Detected Not Detected LAB MICROBIOLOGY METHOD 07/17/2025 5:18 AM EDT [facility] Parainfluenza Virus 1 Not Detected Not Detected LAB MICROBIOLOGY METHOD 07/17/2025 5:18 AM EDT [facility] Parainfluenza Virus 2 Not Detected Not Detected LAB MICROBIOLOGY METHOD 07/17/2025 5:18 AM EDT [facility] Parainfluenza Virus 3 Not Detected Not Detected LAB MICROBIOLOGY METHOD 07/17/2025 5:18 AM EDT [facility] Parainfluenza Virus 4 Not Detected Not Detected LAB MICROBIOLOGY METHOD 07/17/2025 5:18 AM EDT [facility] RSV PCR Not Detected Not Detected LAB MICROBIOLOGY METHOD 07/17/2025 5:18 AM EDT [facility] Human Metapneumovirus A and B Not Detected Not Detected LAB MICROBIOLOGY METHOD 07/17/2025 5:18 AM EDT [facility] Rhinovirus/Entero virus Not Detected Not Detected LAB MICROBIOLOGY METHOD 07/17/2025 5:18 AM EDT [facility] Bordetella pertussis Not Detected Not Detected LAB MICROBIOLOGY METHOD 07/17/2025 5:18 AM EDT [facility] Bordetella parapertussis Not Detected Not Detected LAB MICROBIOLOGY METHOD 07/17/2025 5:18 AM EDT [facility] Mycoplasma pneumo by PCR Not Detected Not Detected LAB MICROBIOLOGY METHOD 07/17/2025 5:18 AM EDT [facility] Chlamydia pneumoniae Not Detected Not Detected LAB MICROBIOLOGY METHOD 07/17/2025 5:18 AM T [facility] SARS COV-2 Detected(A ) Not Detected LAB MICROBIOLOGY METHOD 07/17/2025 5:18 AM EDT [facility] Swab Both anterior nares / Unknown Non-blood Collection / Unknown 07/17/2025 4:08 AM EDT 07/17/2025 4:24 AM EDT [facility] - 07/17/2025 5:18 AM EDT Testing was performed using the Zeel Respiratory Pathogen PCR Assay. All results must be correlated with the clinical findings. Results should not be used as the sole basis for diagnosis. False Negative results may occur from the presence of sequence variants in the region targeted by the assay or the presence of inhibitors. Results may be affected by concurrent antiviral/antimicrobial therapy or levels of organisms that are below the limit of detection. us Yolanda Vasquez MD LAB MICROBIOLOGY - GENERAL ORD ERABLES Final Result Performing Organization Address [facility]/ZIP Co de Phone Number [facility] [address] [place] [address], [place] [phone] * B-type natriuretic peptide (07/17/2025 4:08 AM EDT) BNP 34 <=100 pcg/mL LAB CHEMISTRY METHOD 07/17/2025 4:59 AM EDT [facility] Blood Venous blood specimen / Unknown Venipuncture / Unknown 07/17/2025 4:08 AM EDT 07/17/2025 4:24 AM EDT us Yolanda Vasquez MD LAB BLOOD ORDERABLES Final Res ult Performing Organization Address [facility]/ZIP Co de Phone Number [facility] [address] [place] [address], [place] [phone] * XR Chest 2 Views (07/17/2025 3:30 AM EDT) Anatomical Region Laterality Modality Body Radiographic Nieves ging 07/17/2025 6:51 AM EDT Impressions 07/17/2025 6:53 AM EDT No pneumonia or edema. -------- FINAL REPORT -------- Dictated By: Andry Gomez Dictated Date: 07/17/2025 06:51 ET Assigned Physician: Andry Gomez Reviewed and Electronically Signed By: Andry Gomez Signed Date: 07/17/2025 06:53 ET Workstation ID: [id number] Transcribed By: Self Edit Transcribed Date: 07/17/2025 06:51 ET Narrative 07/17/2025 6:53 AM EDT EXAMINATION: CHEST CLINICAL INFORMATION: Dyspnea COMPARISON: Frontal view 12/26/20 TECHNIQUE: 2 views of the chest FINDINGS: There is rotation to the right. Devices overlie the patient. There is tortuosity of the aorta including the region of the ascending aorta without interval change. Cardiac size within normal limits. No hilar mass, vascular congestion, focal pneumonia or major zone of atelectasis. There is no pleural fluid or pneumothorax. There are osteophytes in the spine. There is bilateral pleural or extrapleural thickening which is nonspecific. Procedure Note Andry Gomez MD - 07/17/2025 EXAMINATION: CHEST CLINICAL INFORMATION: Dyspnea COMPARISON: Frontal view 12/26/20 TECHNIQUE: 2 views of the chest FINDINGS: There is rotation to the right. Devices overlie the patient. There is tortuosity of the aorta including the region of the ascendingaorta without interval change. Cardiac size within normal limits. No hilarmass, vascular congestion, focal pneumonia or major zone of atelectasis. There is no pleural fluid or pneumothorax. There are osteophytes in the spine. There is bilateral pleural or extrapleural thickening which isnonspecific. IMPRESSION: No pneumonia or edema. -------- FINAL REPORT -------- Dictated By: Andry Gomez Dictated Date: 07/17/2025 06:51 ET Assigned Physician: Andry Gomez Reviewed and Electronically Signed By: Andry Gomez Signed Date: 07/17/2025 06:53 ET Workstation ID: [id number] Transcribed By: Self Edit Transcribed Date: 07/17/2025 06:51 ET Yolanda Vasquez MD IMG XR PROCEDURES Final Result * (ABNORMAL) Hepatic function panel (07/17/2025 3:12 AM EDT) Total Protein 6.9 6.0 - 8.0 g/dL LAB CHEMISTRY METHOD 07/17/2025 8:08 AM EDT [facility] Albumin 4.1 3.2 - 5.0 g/dL LAB CHEMISTRY METHOD 07/17/2025 8:08 AM EDT [facility] Total Bilirubin 1.1 0.0 - 1.4 mg/dL LAB CHEMISTRY METHOD 07/17/2025 8:08 AM EDT [facility] Bilirubin, Direct 0.2 0.0 - 0.3 mg/dL LAB CHEMISTRY METHOD 07/17/2025 8:08 AM EDT [facility] Bilirubin, Indirect 0.9 0.0 - 1.1 mg/dL LAB CHEMISTRY METHOD 07/17/2025 8:08 AM EDT [facility] ALT (SGPT) 57 10 - 60 unit/L LAB CHEMISTRY METHOD 07/17/2025 8:08 AM EDT [facility] AST (SGOT) 51(H) 10 - 42 unit/L LAB CHEMISTRY METHOD 07/17/2025 8:08 AM EDT [facility] Alkaline Phosphatase 64 42 - 121 unit/L LAB CHEMISTRY METHOD 07/17/2025 8:08 AM EDT [facility] Blood Venous blood specimen / Unknown Venipuncture / Unknown 07/17/2025 3:12 AM EDT 07/17/2025 4:23 AM EDT Tina Brorero NP LAB BLOOD ORDERABLES Fin al Result [facility] [address] [place] [address], * Lipid panel (10/22/2023) LDL/HDL Ratio 0 0 - 0 Comment:no [...] Most Recently Relevant to Health Maintenance Insurance [facility] Advance Directives Documents on File Type Date Recorded 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 Do not modify or discontinue any currently active code status orders. Care Teams Dredge Pumper Relationship Specialty Start Date End Date Melanie Sanches MD [address] [place] [address] PCP - General 05/19/24
--- OUTSIDE RECORDS SUMMARY | 2025-10-10 19:34 | XMS_ITS | Encounter Summary ---
Author Organization [facility] Address [address] [facility] [address] [place] [address] Phone Care Team Providers Care Chocolate Finisher Operator Name Role Phone Whitney Campos MD Primary Care Provider Encounter Details Date Type Department Care Team (Late st Contact Info) Description 10/21/2023 Procedure Pass [facility], Ct Scan - [address] [address] Social History Tobacco Use Types Packs/Day Years [...] 12:52 PM EST Casey Hunter RN * [place] Suicide Severity Rating Scale (Screener/Recent Self-Report) Question [...] documented as of this encounter Care Teams Chocolate Finisher Operator Relationship Specialty Start Date End Date Whitney Campos MD [address] [place] [address] PCP - General Family Medicine 05/23/22 documented as of this encounter Additional Source Comments The information contained in this document represents components of the legal health record. It is not the complete legal health record.[facility]
--- OUTSIDE RECORDS SUMMARY | 2025-10-10 19:34 | XMS_ITS | Encounter Summary ---
Author Organization [facility] Address [address] [place] [address] Care Team Providers Care Fermenting Cellars Receiver Name Role Phone Melanie Sanches MD Primary Care Provider [phone] Reason for Referral * Cardiac Stress Testing (Routine) - Authorized Specialty Diagnoses / Procedures Referred By Contac t Referred To Contact Cardiology Diagnoses Coronary artery disease of [place] artery of [place] heart with stable angina pectoris ([facility] V24) Procedures Nuclear stress test with myocardial perfusion AL MYOCARDIAL PERFUSION IMAGING TOMOGRAPHIC MULTI STUDIES AT REST OR STRESS AL MYOCARDIAL PERFUSION IMAGING TOMOGRAPHIC SINGLE STUDY AT REST OR STRESS AL CARDIOVASCULAR STRESS TEST GLOBAL AL CV TMST/BIKE MAX/SUBMAX CONTINUOUS ECG MON/PHARM STRESS SUPVSR ONLY AL CV STRESS TEST/BIKE CONT ECG MON/PHARM STRESS INTERP & REPORT ONLY AL TEST STRESS CARDIOVASCULAR TRACING ONLY Shefali Heller NP [address] [place] [address] Dr [address] [place] [phone] Phone: tel: fax: [facility] Referral ID Status Reason Start Date Expiration Date V isits Requested Visits Authorized [id number] Authorized 09/27/2025 09/27/2026 3 3 Encounter Details Date Type Department Care Team (Late st Contact Info) Description 09/27/2025 Telephone [facility] - [facility] [address] [place] [address] Shefali Heller NP [address] [place] [address] [place] [phone] Social History Tobacco Use Types Packs/Day Years [...] on file Sexual Orientation Not on file documented as of this encounter Progress Notes * Elisha Lira - 10/05/2025 1:26 PM EST Patient called back, I made him aware of the appointment change. * Elisha Lira - 10/05/2025 1:22 PM EST Reached out to the patient to convert his appointment on 11/08/[address] Mahoney to a hospital follow up appointment. The line was answered and immediately dropped. I converted his appointment and placed him on the cancellation list for a sooner appointment. * Sabine Myrick - 09/29/2025 9:40 AM EST Noted, thank you. * Shefali Heller NP - 09/28/2025 4:18 PM EST Will keep plans for upcoming nuclear stress test then thank you for looking into this * Alla Andrew MA - 09/28/2025 3:45 PM EST After reviewing with Linda Rios, report was never finished. I called Nuclear Medicine regardingthe test. I was told that when the patient was inpatient, the test was ordered and started. Howeverafter injecting the patient with the medicine and laying him down to begin the test he became very short of breath. They sat the patient up and the patient tested positive for covid. The test was never completed which is why there is no report. * Linda Rios NP - 09/28/2025 3:37 PM EST Report filed currently under cardiovascular reflects the administration of the nuclear isotope only, there is no report of the actual test, report reads that it still has not been read, thank you Patricia for following up with [facility]/nuclear medicine * Linda Rios NP - 09/28/2025 10:13 AM EST I do not see the results of the nuclear ordered at [facility] in June? * Sabine Myrick - 09/27/2025 3:39 PM EST Nuclear test scheduled with patient for 10/04/25 @ 7:30am. Patient is still at [facility]. Instructions mailed. Patient mentioned he completed a Nuclear test at [facility] ED on 07/19/25, Echo on 07/17/25, FYI. * Shefali Heller NP - 09/27/2025 1:21 PM EST Seen at [facility]. Will need to have outpatient pharmacological nuclear stress test due to chronic foot drop and unable to coordinate treadmill for further evaluation and hospital follow-up with Linda Rios as soon as possible. documented in this encounter Plan of Treatment Upcoming Encounters Date Type Department Care Team (Late st Contact Info) Description 11/08/2025 10:40 AM EST Office Visit [facility] - [address] [place] [phone] Kevon Mahoney MD [address] [place] [address] Dr [address] [place] [phone] documented as of this encounter Results * NM LEXISCAN STRESS TEST W/ [...] Anatomical Region Laterality Modality Nuclear Medicine 10/04/2025 7:52 AM EST 10/04/2025 8:46 AM EST Narrative [...] Heller NP CV STRESS PROCEDURES Final Result documented in this encounter Visit Diagnoses Diagnosis Coronary artery disease of [place] artery of [place] heart with stable angina pectoris (CMS/HCC V24)- Primary Coronary artery disease of [place] artery of [place] heart with stable angina pectoris (CMS/HCC V24) documented in this encounter Care Teams Fermenting Cellars Receiver Relationship Specialty Start Date End Date Melanie Sanches MD [address] [place] [address] PCP - General 05/19/24 documented as of this encounter
--- OUTSIDE RECORDS SUMMARY | 2025-10-10 19:34 | XMS_ITS | Encounter Summary ---
Author Organization [facility] Address [address] [facility] [address] [place] [address] Phone Care Team Providers Care Power And Recovery Supervisor Name Role Phone Whitney Campos MD Primary Care Provider Encounter Details Date Type Department Care Team (Late st Contact Info) Description 10/21/2023 Procedure Pass [facility], Ct Scan - [address] [address] Social History Tobacco Use Types Packs/Day Years [...] 12:52 PM EST Casey Hunter RN * [place] Suicide Severity Rating Scale (Screener/Recent Self-Report) Question [...] documented as of this encounter Care Teams Power And Recovery Supervisor Relationship Specialty Start Date End Date Whitney Campos MD [address] [place] [address] PCP - General Family Medicine 05/23/22 documented as of this encounter Additional Source Comments The information contained in this document represents components of the legal health record. It is not the complete legal health record.[facility]
== END 2025-10-10 14:46 | disposition home or self-care (01) ==
LOC: HO.HNS 13:25
PROVIDERS: PCP Internal Medicine; Visit Provider Physician Assistant
DX: R29.898 Other symptoms and signs involving the musculoskeletal system (principal)
CPT/HCPCS: 99213